=== PATIENT | male | born 1950 | race Hispanic/Latino ===

== ENCOUNTER 2018-12-03 16:46 | Inpatient (IN) | payer MEDICARE ==
--- NOTE | 2018-12-03 16:51 | Emergency Department Report ---
Blank Doc - Documentation Documentation: This is a 68-year-old male that presents with penile pump protruding. Stated was there for 2 days. This initial assessment/diagnostic orders/clinical plan/treatment(s) is/are subject to change based on patient's health status, clinical progression and re- assessment by fellow clinical providers in the ED. Further treatment and workup at subsequent clinical providers discretion. Patient/guardians urged not to elope from the ED as their condition may be serious if not clinically assessed and managed. Initial orders include: 1- Patient sent to MAIN ED for further evaluation and treatment 2- Charge nurse notified to have the patient be brought back [facility]
--- NOTE | 2018-12-03 17:12 | Emergency Department Report ---
ED Male HPI - General Chief complaint: Urogenital-Male Stated complaint: PENIS ISSUES Time Seen by Provider: 12/03/18 16:48 Source: patient Mode of arrival: Ambulatory Limitations: No Limitations - History of Present Illness Initial comments: This is a 68-year-old male that presents with penile pump protruding through his penis. Stated it was noticed this morning by his brother that was caring for him. He had the penile pump placed 2 years ago. He also has a history of prostate issues status post biopsy 2 years ago also. He complaining of severe pain, discharge, redness from the area. -: Gradual, days(s) (1) Location: penis Radiation: none Severity: severe Severity scale (0 -10): 10 - Related Data Home Medications Medication Instructions Recorded Confirmed Last Taken Diazepam 1 tab PO BID 02/26/16 05/14/16 Unknown Fesoterodine Fumarate [Toviaz] 4 mg PO QDAY 02/26/16 05/14/16 Unknown Diazepam [Valium] 10 mg PO BID 05/14/16 05/14/16 Unknown Valsartan/Hydrochlorothiazide 1 each PO DAILY 05/14/16 05/14/16 Unknown [Valsartan-Hctz 320-25 mg Tab] amLODIPine [Norvasc] 10 mg PO DAILY 05/14/16 05/14/16 Unknown Allergies Allergy/AdvReac Type Severity Reaction Status Date / Time No Known Allergies Allergy Verified 02/28/16 14:38 ED Review of Systems ROS: Stated complaint: PENIS ISSUES Other details as noted in HPI Comment: All other systems reviewed and negative Constitutional: denies: chills Eyes: denies: eye pain ENT: denies: ear pain Respiratory: denies: cough Cardiovascular: denies: chest pain Genitourinary: urgency, other (penile pain) Neurological: denies: headache Psychiatric: denies: anxiety ED Past Medical Hx - Past Medical History Hx Hypertension: Yes Hx CVA: Yes Hx GERD: No Hx Psychiatric Treatment: Yes (panic attacks, mentally challenged) Hx HIV: No Additional medical history: elevated psa, - Social History Smoking Status: Former Smoker Substance Use Type: None - Medications Home Medications: Home Medications Medication Instructions Recorded Confirmed Last Taken Type Diazepam 1 tab PO BID 02/26/16 05/14/16 Unknown History Fesoterodine Fumarate [Toviaz] 4 mg PO QDAY 02/26/16 05/14/16 Unknown History Diazepam [Valium] 10 mg PO BID 05/14/16 05/14/16 Unknown History Valsartan/Hydrochlorothiazide 1 each PO DAILY 05/14/16 05/14/16 Unknown History [Valsartan-Hctz 320-25 mg Tab] amLODIPine [Norvasc] 10 mg PO DAILY 05/14/16 05/14/16 Unknown History ED Physical Exam - General Limitations: No Limitations General appearance: alert, in no apparent distress - Head Head exam: Present: atraumatic, normocephalic - Eye Eye exam: Present: normal appearance, PERRL, EOMI - ENT ENT exam: Present: normal exam, normal orophraynx - Neck Neck exam: Present: normal inspection - Respiratory Respiratory exam: Present: normal lung sounds bilaterally - Cardiovascular Cardiovascular Exam: Present: regular rate, normal rhythm - GI/Abdominal GI/Abdominal exam: Present: soft, normal bowel sounds - exam: Present: other (pump eroded through penis, about 1 inch of pump out of penis) ED Course Vital Signs 12/03/18 12/03/18 16:49 18:47 Temperature 97.5 F L Pulse Rate 99 H Respiratory 17 20 Rate Blood Pressure 159/84 [Left] O2 Sat by Pulse 97 97 Oximetry - Reevaluation(s) Reevaluation #1: 12/03/18 18:55 Morphine 2 mg IV, which helped pain, wound culture, Zosyn started, discussed with urologist, Dr. hoffman, recommended admission by hospitalist, who will see in a.m. ED Medical Decision Making - Lab Data Result diagrams: 12/03/18 17:16 12/03/18 16:58 - Medical Decision Making Morphine 2 mg IV, which helped pain, wound culture, Zosyn started, discussed with urologist, Dr. hoffman, recommended admission by hospitalist, who will see in a.m. Critical care attestation.: If time is entered above; I have spent that time in minutes in the direct care of this critically ill patient, excluding procedure time. ED Disposition Clinical Impression: Open wound of penis with complication Qualifiers: Encounter type: initial encounter Qualified Code(s): S31.20XA - Unspecified open wound of penis, initial encounter Disposition: OP ADMIT IP TO THIS HOSP Is pt being admited?: Yes Does the pt Need Aspirin: No Condition: Stable Referrals: KRIS VENEGAS MD [Primary Care Provider] - 3-5 Days
[2018-12-03] MEDS ORDERED: MORPHINE IV ONE (17:24)
[2018-12-03] MEDS ORDERED: ZOFRAN IV ONE (17:24)
[2018-12-03 17:32] LABS: Basophils # (Auto) 0.1 K/mm3 (0.0-0.1); Basophils % (Auto) 0.4 % (0.0-1.8); Eosinophils # (Auto) 0.3 K/mm3 (0.0-0.4); Hematocrit 42.7 % (35.5-45.6); Lymphocytes # (Auto) 3.6 K/mm3 (1.2-5.4); Lymphocytes % (Auto) 24.5 % (13.4-35.0); Mean Corpuscular HGB Conc 33 % (32-34); Mean Corpuscular Volume 86 fl (84-94); Monocytes # (Auto) 1.1 K/mm3 (0.0-0.8); Monocytes % (Auto) 7.2 % (0.0-7.3); Platelet Count 384 K/mm3 (140-440); Red Blood Count 4.94 M/mm3 (3.65-5.03); Red Cell Distribution Width 15.3 % (13.2-15.2)
[2018-12-03 17:35] LABS: Alanine Aminotransferase 14 units/L (7-56); Albumin 3.7 g/dL (3.9-5); BUN/Creatinine Ratio 22; Blood Urea Nitrogen 26 mg/dL (9-20); Calcium 9.1 mg/dL (8.4-10.2); Hemolysis Index 9
[2018-12-03] MEDS ORDERED: ZOSYN/NS 3.375GM/50ML 3.375 GM/50 ML BAG IV ONE (17:45)
[2018-12-03] MEDS ORDERED: ZOFRAN IV PRN (20:13)
[2018-12-03] MEDS ORDERED: TYLENOL PO PRN (20:13)
[2018-12-03] MEDS ORDERED: SODIUM CHLORIDE FLUSH SYRINGE 10 ML IV PRN (20:13)
[2018-12-03] MEDS ORDERED: DILAUDID IV PRN (20:13)
--- NOTE | 2018-12-03 20:53 | History and Physical Report ---
History of Present Illness Date of examination: 12/03/18 Date of admission: 12/03/18 19:31 Chief complaint: Penile pain History of present illness: 68-year-old male with history of hypertension, CVA, panic attacks, mentally challenged who presents to [facility] ED with complaints of penile pain and erosion of penile pump through penis. He states that he had a penile pump placed approximately 2 years ago. Of note patient is mentally challenged and his brother is his legal caregiver. Patient states that his brother noticed the erosion of penile pump through his penis this morning when providing care for him. Patient states that his pain is 8/10 and isolated to the penile area. He also complains of drainage with foul odor coming from his penis. Denies: n/v/d, fever, radius penile pump complications Past History Past Medical History: hypertension, stroke, other (panic attacks, mentally challenged, elevated PSA) Past Surgical History: Other (penile implant surgery) Social history: lives with family, smoking (former smoker) Family history: no significant family history Medications and Allergies Allergies Allergy/AdvReac Type Severity Reaction Status Date / Time No Known Allergies Allergy Verified 02/28/16 14:38 Home Medications Medication Instructions Recorded Confirmed Last Taken Type Diazepam 1 tab PO BID 02/26/16 05/14/16 Unknown History Fesoterodine Fumarate [Toviaz] 4 mg PO QDAY 02/26/16 05/14/16 Unknown History Diazepam [Valium] 10 mg PO BID 05/14/16 05/14/16 Unknown History Valsartan/Hydrochlorothiazide 1 each PO DAILY 05/14/16 05/14/16 Unknown History [Valsartan-Hctz 320-25 mg Tab] amLODIPine [Norvasc] 10 mg PO DAILY 05/14/16 05/14/16 Unknown History Active Meds: Active Medications Acetaminophen (Tylenol) 650 mg PO Q4H PRN PRN Reason: Pain MILD(1-3)/Fever >100.5/[place] Amlodipine Besylate (Norvasc) 10 mg PO DAILY [facility] Aspirin (Baby Aspirin) 81 mg PO QDAY [facility] Atorvastatin Calcium (Lipitor) 40 mg PO QHS [facility] Enoxaparin Sodium (Lovenox) 40 mg SUB-Q QDAY [facility] Hydralazine HCl (Apresoline) 10 mg IV Q4HR PRN PRN Reason: Blood Pressure Hydromorphone HCl (Dilaudid) 0.5 mg IV Q3H PRN PRN Reason: Pain , Severe (7-10) Stop: 12/04/18 23:59 Ampicillin Sodium/Sulbactam Sodium (Unasyn/Ns 1.5 Gm/50 Ml) 1.5 gm in 50 mls @ 100 mls/hr IV Q6HR KARINA; Protocol Sodium Chloride (Nacl 0.9% 1000 Ml) 1,000 mls @ 100 mls/hr IV DIRECT KARINA Miscellaneous Medication (Fesoterodine Fumarate [Toviaz]) 4 mg PO QDAY [facility] Morphine Sulfate (Morphine) 2 mg IV Q4H PRN PRN Reason: Pain, Moderate (4-6) Ondansetron HCl (Zofran) 4 mg IV Q8H PRN PRN Reason: Nausea And Vomiting Oxycodone/Acetaminophen (Percocet 5/325) 1 tab PO Q6H PRN PRN Reason: Pain, Moderate (4-6) Sodium Chloride (Sodium Chloride Flush Syringe 10 Ml) 10 ml IV BID KARINA Sodium Chloride (Sodium Chloride Flush Syringe 10 Ml) 10 ml IV PRN PRN PRN Reason: LINE FLUSH Review of Systems All systems: negative (reviewed and no additional remarkable complaints except as noted below) Genitourinary Male: urinary frequency, genital pain (penile pain related to c omplications from penile implant) Exam - Physical Exam Narrative exam: Physical exam General appearance: Present: No acute distress, alert and oriented 3, older adult male - EENT Eyes: Present: PERRL, EOM intact ENT: hearing intact, poor dentition - Neck Neck: Present: supple, normal ROM - Respiratory Respiratory effort: Non-labored Respiratory: Clear throughout - Cardiovascular Heart rate: 72 (bpm) Rhythm: Sinus rhythm Heart Sounds: Present: S1 & S2. Absent: rub, click - Extremities Extremities: no ischemia, pulses intact, - Peripheral Assessment Peripheral Pulses: within normal limits - Abdominal General gastrointestinal: soft, non-tender, normal bowel sounds - Integumentary Integumentary: Present: warm, dry - Musculoskeletal Musculoskeletal: Normal gait, able to move all extremities - : pump eroded through penis, about 1 inch of pump out of penis - Psychiatric Psychiatric: cooperative - Constitutional Vitals: Temp Pulse Resp BP Pulse Ox 98.2 F 72 18 146/63 96 12/03/18 20:04 12/03/18 20:04 12/03/18 20:04 12/03/18 20:04 12/03/18 20:04 Results - Labs CBC & Chem 7: 12/03/18 17:16 12/03/18 16:58 Labs: Laboratory Last Values WBC 14.7 K/mm3 (4.5-11.0) H 12/03/18 17:16 RBC 4.94 M/mm3 (3.65-5.03) 12/03/18 17:16 Hgb 14.0 gm/dl (11.8-15.2) 12/03/18 17:16 Hct 42.7 % (35.5-45.6) 12/03/18 17:16 MCV 86 fl (84-94) 12/03/18 17:16 MCH 28 pg (28-32) 12/03/18 17:16 MCHC 33 % (32-34) 12/03/18 17:16 RDW 15.3 % (13.2-15.2) H 12/03/18 17:16 Plt Count 384 K/mm3 (140-440) 12/03/18 17:16 Lymph % (Auto) 24.5 % (13.4-35.0) 12/03/18 17:16 [place] % (Auto) 7.2 % (0.0-7.3) 12/03/18 17:16 Eos % (Auto) 2.0 % (0.0-4.3) 12/03/18 17:16 Baso % (Auto) 0.4 % (0.0-1.8) 12/03/18 17:16 Lymph # 3.6 K/mm3 (1.2-5.4) 12/03/18 17:16 [place] # 1.1 K/mm3 (0.0-0.8) H 12/03/18 17:16 Eos # 0.3 K/mm3 (0.0-0.4) 12/03/18 17:16 Baso # 0.1 K/mm3 (0.0-0.1) 12/03/18 17:16 Seg Neutrophils % 65.9 % (40.0-70.0) 12/03/18 17:16 Seg Neutrophils # 9.7 K/mm3 (1.8-7.7) H 12/03/18 17:16 Sodium 139 mmol/L (137-145) 12/03/18 16:58 Potassium 4.7 mmol/L (3.6-5.0) 12/03/18 16:58 Chloride 100.8 mmol/L (98-107) 12/03/18 16:58 Carbon Dioxide 24 mmol/L (22-30) 12/03/18 16:58 19 mmol/L 12/03/18 16:58 BUN 26 mg/dL (9-20) H 12/03/18 16:58 1.2 mg/dL (0.8-1.5) 12/03/18 16:58 Estimated GFR > 60 ml/min 12/03/18 16:58 22 % 12/03/18 16:58 Glucose 99 mg/dL (75-100) 12/03/18 16:58 Lactic Acid 1.30 mmol/L (0.7-2.0) 12/03/18 17:20 Calcium 9.1 mg/dL (8.4-10.2) 12/03/18 16:58 0.20 mg/dL (0.1-1.2) 12/03/18 16:58 AST 21 units/L (5-40) 12/03/18 16:58 ALT 14 units/L (7-56) 12/03/18 16:58 82 units/L (35-129) 12/03/18 16:58 8.2 g/dL (6.3-8.2) 12/03/18 16:58 3.7 g/dL (3.9-5) L 12/03/18 16:58 0.8 % 12/03/18 16:58 Assessment and Plan Assessment and plan: 68-year-old male with history of hypertension, CVA, panic attacks, mentally challenged who presents to [facility] ED with complaints of penile pain and erosion of penile pump through penis. On assessment penile pump is noted to be eroded approximately 1 inch outside of penis. There is some crusting over genital area with foul odor noted. Has elevated white count at 14.7 with a heart rate of 99 bpm, and is currently afebrile. Will admit to [facility] and consult urology. Sepsis likely due to erosion of penile pump Erosion of penile pump RASHID HTN Hx CVA Hx of panic attacks Mentally challenged Plan: Continue Supportive care Pain management Start Unasyn Nothing by mouth at midnight Urology consulted with plans for surgical intervention in a.m. IVF NS @ 100ml/hr Monitor renal function Monitor CBC Monitor BP IV hydralazine when necessary Norvasc 10 mg daily ASA 81 mg daily, Lipitor 40 mg daily at bedtime DVT PPX on Lovenox Advance Directives: No VTE prophylaxis?: Chemical Plan of care discussed with patient/family: Yes
[2018-12-03] MEDS: SODIUM CHLORIDE FLUSH SYRINGE 10 ML IV SCH (22:01)
[2018-12-03] MEDS: NACL 0.9% 1000 ML 1,000 ML IV SCH (22:02)
[2018-12-04] MEDS: MORPHINE IV PRN (00:16)
[2018-12-04] MEDS: UNASYN/NS 1.5 GM/50 ML 1.5 GM/50 ML BAG IV SCH ×4 (00:16→18:02)
[2018-12-04] MEDS: SODIUM CHLORIDE FLUSH SYRINGE 10 ML IV SCH ×2 (00:17→21:44)
[2018-12-04 06:38] LABS: Basophils % (Auto) 0.1 % (0.0-1.8); Eosinophils # (Auto) 0.4 K/mm3 (0.0-0.4); Hematocrit 36.6 % (35.5-45.6); Hemoglobin 12.2 gm/dl (11.8-15.2); Lymphocytes # (Auto) 2.9 K/mm3 (1.2-5.4); Lymphocytes % (Auto) 24.2 % (13.4-35.0); Mean Corpuscular HGB Conc 33 % (32-34); Mean Corpuscular Volume 87 fl (84-94); Monocytes # (Auto) 1.1 K/mm3 (0.0-0.8); Platelet Count 298 K/mm3 (140-440); Red Blood Count 4.23 M/mm3 (3.65-5.03); Red Cell Distribution Width 14.9 % (13.2-15.2)
[2018-12-04 06:56] LABS: BUN/Creatinine Ratio 22; Blood Urea Nitrogen 24 mg/dL (9-20); Calcium 8.2 mg/dL (8.4-10.2); Hemolysis Index 0
[2018-12-04] MEDS: NORVASC PO SCH (09:24)
[2018-12-04] MEDS ORDERED: FESOTERODINE FUMARATE 4 MG PO SCH (10:00)
[2018-12-04] MEDS ORDERED: LOVENOX SUB-Q SCH (10:00)
[2018-12-04] MEDS ORDERED: BABY ASPIRIN PO SCH (10:00)
--- NOTE | 2018-12-04 13:46 | Progress Note ---
Assessment and Plan Assessment and plan: 68-year-old male with history of hypertension, CVA, panic attacks, mentally challenged who presents to [facility] ED with complaints of penile pain and erosion of penile pump through penis. On assessment penile pump is noted to be eroded approximately 1 inch outside of penis. There is some crusting over genital area with foul odor noted. Has elevated white count at 14.7 with a heart rate of 99 bpm, and is currently afebrile. Urology consulted in the ED Sepsis likely due to erosion of penile pump Erosion of penile pump RASHID HTN Hx CVA Hx of panic attacks Mentally challenged Plan: Continue Supportive care Pain management Patient is on IV Unasyn Nothing by mouth at midnight Urology consulted with plans for surgical intervention today IVF NS @ 100ml/hr IV hydralazine when necessary Norvasc 10 mg daily ASA 81 mg daily, Lipitor 40 mg daily at bedtime DVT PPX on Lovenox History Interval history: Patient was seen and evaluated this morning, patient's complaining pain in his penis. Hospitalist Physical - Physical exam Narrative exam: Not in cardiopulmonary distress. The patient appeared well nourished and normally developed. Vital signs as documented. Head exam is unremarkable. No scleral icterus . Neck is without jugular venous distension, thyromegaly, or carotid bruits. Lungs are clear to auscultation. Cardiac exam reveals regular rate and Rhythm. First and second heart sounds normal. No murmurs, rubs or gallops. Abdominal exam reveals normal bowel sounds, no masses, no organomegaly and no aortic enlargement. Extremities are nonedematous and both femoral and pedal pulses are normal. ; has eroded penile head. The implants are visible and offensive discharge. SALES LEADER: Alert . - Constitutional Vitals: Temp Pulse Resp BP Pulse Ox 98.6 F 85 20 140/86 93 12/04/18 07:44 12/04/18 07:44 12/04/18 09:14 12/04/18 07:44 12/04/18 07:44 Results - Labs CBC & Chem 7: 12/04/18 04:44 12/04/18 04:44 Labs: Laboratory Last Values WBC 12.1 K/mm3 (4.5-11.0) H 12/04/18 04:44 RBC 4.23 M/mm3 (3.65-5.03) 12/04/18 04:44 Hgb 12.2 gm/dl (11.8-15.2) 12/04/18 04:44 Hct 36.6 % (35.5-45.6) D 12/04/18 04:44 MCV 87 fl (84-94) 12/04/18 04:44 MCH 29 pg (28-32) 12/04/18 04:44 MCHC 33 % (32-34) 12/04/18 04:44 RDW 14.9 % (13.2-15.2) 12/04/18 04:44 Plt Count 298 K/mm3 (140-440) 12/04/18 04:44 Lymph % (Auto) 24.2 % (13.4-35.0) 12/04/18 04:44 [place] % (Auto) 9.0 % (0.0-7.3) H 12/04/18 04:44 Eos % (Auto) 3.0 % (0.0-4.3) 12/04/18 04:44 Baso % (Auto) 0.1 % (0.0-1.8) 12/04/18 04:44 Lymph # 2.9 K/mm3 (1.2-5.4) 12/04/18 04:44 [place] # 1.1 K/mm3 (0.0-0.8) H 12/04/18 04:44 Eos # 0.4 K/mm3 (0.0-0.4) 12/04/18 04:44 Baso # 0.0 K/mm3 (0.0-0.1) 12/04/18 04:44 Seg Neutrophils % 63.7 % (40.0-70.0) 12/04/18 04:44 Seg Neutrophils # 7.7 K/mm3 (1.8-7.7) 12/04/18 04:44 Sodium 139 mmol/L (137-145) 12/04/18 04:44 Potassium 3.9 mmol/L (3.6-5.0) 12/04/18 04:44 Chloride 102.5 mmol/L (98-107) 12/04/18 04:44 Carbon Dioxide 25 mmol/L (22-30) 12/04/18 04:44 15 mmol/L 12/04/18 04:44 BUN 24 mg/dL (9-20) H 12/04/18 04:44 1.1 mg/dL (0.8-1.5) 12/04/18 04:44 Estimated GFR > 60 ml/min 12/04/18 04:44 22 % 12/04/18 04:44 Glucose 84 mg/dL (75-100) 12/04/18 04:44 Lactic Acid 1.30 mmol/L (0.7-2.0) 12/03/18 17:20 Calcium 8.2 mg/dL (8.4-10.2) L 12/04/18 04:44 0.20 mg/dL (0.1-1.2) 12/03/18 16:58 AST 21 units/L (5-40) 12/03/18 16:58 ALT 14 units/L (7-56) 12/03/18 16:58 82 units/L (35-129) 12/03/18 16:58 8.2 g/dL (6.3-8.2) 12/03/18 16:58 3.7 g/dL (3.9-5) L 12/03/18 16:58 0.8 % 12/03/18 16:58 Active Medications - Current Medications Current Medications: Generic Name Dose Route Start Last Admin Trade Name Freq PRN Reason Stop Dose Admin Acetaminophen 650 mg 12/03/18 20:13 Tylenol PO Q4H PRN Pain MILD(1-3)/Fever >100.5/[place] Amlodipine Besylate 10 mg 12/04/18 10:00 Norvasc PO DAILY [facility] Aspirin 81 mg 12/04/18 10:00 Baby Aspirin PO QDAY [facility] Atorvastatin Calcium 40 mg 12/03/18 22:00 12/03/18 22:00 Lipitor PO 40 mg QHS KARINA Administration Enoxaparin Sodium 40 mg 12/04/18 10:00 Lovenox SUB-Q QDAY [facility] Hydralazine HCl 10 mg 12/03/18 20:17 Apresoline IV Q4HR PRN Blood Pressure Hydromorphone HCl 0.5 mg 12/03/18 20:13 Dilaudid IV 12/04/18 23:59 Q3H PRN Pain , Severe (7-10) Ampicillin Sodium/Sulbactam Sodium 1.5 gm in 50 mls @ 100 mls/hr 12/04/18 00:00 12/04/18 06:25 Unasyn/Ns 1.5 Gm/50 Ml IV 100 mls/hr Q6HR KARINA Administration Protocol Sodium Chloride 1,000 mls @ 100 mls/hr 12/03/18 21:00 12/03/18 22:02 Nacl 0.9% 1000 Ml IV 100 mls/hr DIRECT KARINA Administration Miscellaneous Medication 4 mg 12/04/18 10:00 Fesoterodine Fumarate [Toviaz] PO QDAY KARINA Morphine Sulfate 2 mg 12/03/18 20:13 12/04/18 00:16 Morphine IV 2 mg Q4H PRN Administration Pain, Moderate (4-6) Ondansetron HCl 4 mg 12/03/18 20:13 Zofran IV Q8H PRN Nausea And Vomiting Oxycodone/Acetaminophen 1 tab 12/03/18 20:13 Percocet 5/325 PO Q6H PRN Pain, Moderate (4-6) Sodium Chloride 10 ml 12/03/18 22:00 12/04/18 00:17 Sodium Chloride Flush Syringe 10 Ml IV 10 ml BID KARINA Administration Sodium Chloride 10 ml 12/03/18 20:13 Sodium Chloride Flush Syringe 10 Ml IV PRN PRN LINE FLUSH
--- NOTE | 2018-12-04 14:32 | Consultation ---
History of Present Illness - Reason for Consult Consult date: 12/04/18 Past History Past Medical History: hypertension, stroke, other (panic attacks, mentally challenged, elevated PSA) Past Surgical History: Other (penile implant surgery) Social history: lives with family, smoking (former smoker) Family history: no significant family history Medications and Allergies Allergies Allergy/AdvReac Type Severity Reaction Status Date / Time No Known Allergies Allergy Verified 02/28/16 14:38 Home Medications Medication Instructions Recorded Confirmed Last Taken Type No Known Home Medications [No 12/04/18 12/04/18 Unknown History Reported Home Medications] Active Meds: Active Medications Acetaminophen (Tylenol) 650 mg PO Q4H PRN PRN Reason: Pain MILD(1-3)/Fever >100.5/[place] Amlodipine Besylate (Norvasc) 10 mg PO DAILY [facility] Aspirin (Baby Aspirin) 81 mg PO QDAY [facility] Atorvastatin Calcium (Lipitor) 40 mg PO QHS [facility] Last Admin: 12/03/18 22:00 Dose: 40 mg Documented by: Enoxaparin Sodium (Lovenox) 40 mg SUB-Q QDAY [facility] Hydralazine HCl (Apresoline) 10 mg IV Q4HR PRN PRN Reason: Blood Pressure Hydromorphone HCl (Dilaudid) 0.5 mg IV Q3H PRN PRN Reason: Pain , Severe (7-10) Stop: 12/04/18 23:59 Ampicillin Sodium/Sulbactam Sodium (Unasyn/Ns 1.5 Gm/50 Ml) 1.5 gm in 50 mls @ 100 mls/hr IV Q6HR [facility]; Protocol Last Admin: 12/04/18 12:25 Dose: 100 mls/hr Documented by: Sodium Chloride (Nacl 0.9% 1000 Ml) 1,000 mls @ 100 mls/hr IV DIRECT KARINA Last Admin: 12/03/18 22:02 Dose: 100 mls/hr Documented by: Miscellaneous Medication (Fesoterodine Fumarate [Toviaz]) 4 mg PO QDAY [facility] Morphine Sulfate (Morphine) 2 mg IV Q4H PRN PRN Reason: Pain, Moderate (4-6) Last Admin: 12/04/18 00:16 Dose: 2 mg Documented by: Ondansetron HCl (Zofran) 4 mg IV Q8H PRN PRN Reason: Nausea And Vomiting Oxycodone/Acetaminophen (Percocet 5/325) 1 tab PO Q6H PRN PRN Reason: Pain, Moderate (4-6) Sodium Chloride (Sodium Chloride Flush Syringe 10 Ml) 10 ml IV BID [facility]ARINA Last Admin: 12/04/18 00:17 Dose: 10 ml Documented by: Sodium Chloride (Sodium Chloride Flush Syringe 10 Ml) 10 ml IV PRN PRN PRN Reason: LINE FLUSH Exam - Constitutional Vitals: Temp Pulse Resp BP Pulse Ox 98.7 F 74 18 164/65 96 12/04/18 13:11 12/04/18 13:11 12/04/18 13:11 12/04/18 13:11 12/04/18 13:11 Results - Labs CBC & Chem 7: 12/04/18 04:44 12/04/18 04:44 Labs: Abnormal lab results 12/03/18 12/03/18 12/04/18 Range/Units 16:58 17:16 04:44 WBC 14.7 H 12.1 H (4.5-11.0) K/mm3 RDW 15.3 H (13.2-15.2) % [place] % (Auto) 9.0 H (0.0-7.3) % [place] # 1.1 H 1.1 H (0.0-0.8) K/mm3 Seg Neutrophils # 9.7 H (1.8-7.7) K/mm3 BUN 26 H (9-20) mg/dL Calcium (8.4-10.2) mg/dL Albumin 3.7 L (3.9-5) g/dL 12/04/18 Range/Units 04:44 WBC (4.5-11.0) K/mm3 RDW (13.2-15.2) % [place] % (Auto) (0.0-7.3) % [place] # (0.0-0.8) K/mm3 Seg Neutrophils # (1.8-7.7) K/mm3 BUN 24 H (9-20) mg/dL Calcium 8.2 L (8.4-10.2) mg/dL Albumin (3.9-5) g/dL Assessment and Plan PENILE PROSTHESIS EROSION - suspec chronic, pt voiding - disc w/ pt had brother and sisterinlwas - Will need removal and will plan during this inpatient stay
[2018-12-04] MEDS: NACL 0.9% 1000 ML 1,000 ML IV SCH (18:01)
[2018-12-04] MEDS: PERCOCET 5/325 PO PRN (21:37)
[2018-12-04] MEDS ORDERED: ZOFRAN IV PRN (22:39)
[2018-12-04] MEDS ORDERED: SUBLIMAZE IV PRN (22:39)
--- NOTE | 2018-12-05 00:11 | Progress Note ---
Assessment and Plan PENILE PROSTHESIS EROSION - suspec chronic, pt voiding - disc w/ pt had brother and sisterariana - Will need removal and will plan during this inpatient stay - 2nd visity disc plan for am surgery Subjective Date of service: 12/04/18 Interval history: no comple Objective - Constitutional Vitals: Vital Signs - 12hr 12/04/18 12/04/18 13:11 20:00 Temperature 98.7 F 98.1 F Pulse Rate 74 85 Respiratory 18 20 Rate Blood Pressure 164/65 Blood Pressure 162/68 [Left] O2 Sat by Pulse 96 98 Oximetry - Labs CBC & Chem 7: 12/04/18 04:44 12/04/18 04:44 Labs: Abnormal lab results 12/04/18 12/04/18 Range/Units 04:44 04:44 WBC 12.1 H (4.5-11.0) K/mm3 [place] % (Auto) 9.0 H (0.0-7.3) % [place] # 1.1 H (0.0-0.8) K/mm3 BUN 24 H (9-20) mg/dL Calcium 8.2 L (8.4-10.2) mg/dL Medications & Allergies - Medications Allergies/Adverse Reactions: Allergies No Known Allergies Allergy (Verified 02/28/16 14:38) Home Medications: Home Medications Medication Instructions Recorded Confirmed Last Taken Type No Known Home Medications [No 12/04/18 12/04/18 Unknown History Reported Home Medications] Active Medications: Generic Name Dose Route Start Last Admin Trade Name Freq PRN Reason Stop Dose Admin Acetaminophen 650 mg 12/03/18 20:13 Tylenol PO Q4H PRN Pain MILD(1-3)/Fever >100.5/[place] Amlodipine Besylate 10 mg 12/04/18 10:00 12/04/18 09:24 Norvasc PO Not Given DAILY [facility] Atorvastatin Calcium 40 mg 12/03/18 22:00 12/04/18 20:59 Lipitor PO 40 mg QHS KARINA Administration Fentanyl 50 mcg 12/04/18 22:39 Sublimaze IV 12/05/18 01:59 Q5MIN PRN Pain , Severe (7-10) Hydralazine HCl 10 mg 12/03/18 20:17 Apresoline IV Q4HR PRN Blood Pressure Ampicillin Sodium/Sulbactam Sodium 1.5 gm in 50 mls @ 100 mls/hr 12/04/18 00:00 12/04/18 18:02 Unasyn/Ns 1.5 Gm/50 Ml IV 100 mls/hr Q6HR [facility]INA Administration Protocol Sodium Chloride 1,000 mls @ 100 mls/hr 12/03/18 21:00 12/04/18 18:01 Nacl 0.9% 1000 Ml IV 100 mls/hr DIRECT [facility]ARINA Administration Miscellaneous Medication 4 mg 12/04/18 10:00 Fesoterodine Fumarate [Toviaz] PO QDAY [facility] Morphine Sulfate 2 mg 12/03/18 20:13 12/04/18 00:16 Morphine IV 2 mg Q4H PRN Administration Pain, Moderate (4-6) Ondansetron HCl 4 mg 12/03/18 20:13 Zofran IV Q8H PRN Nausea And Vomiting Oxycodone/Acetaminophen 1 tab 12/03/18 20:13 12/04/18 21:37 Percocet 5/325 PO 1 tab Q6H PRN Administration Pain, Moderate (4-6) Sodium Chloride 10 ml 12/03/18 22:00 12/04/18 21:44 Sodium Chloride Flush Syringe 10 Ml IV 10 ml BID KARINA Administration Sodium Chloride 10 ml 12/03/18 20:13 Sodium Chloride Flush Syringe 10 Ml IV PRN PRN LINE FLUSH
[2018-12-05] MEDS: UNASYN/NS 1.5 GM/50 ML 1.5 GM/50 ML BAG IV SCH ×4 (00:19→22:40)
[2018-12-05] MEDS: APRESOLINE IV PRN ×2 (03:54→11:09)
[2018-12-05] MEDS: NACL 0.9% 1000 ML 1,000 ML IV SCH ×2 (05:34→14:39)
[2018-12-05 06:26] LABS: Basophils % (Auto) 0.3 % (0.0-1.8); Eosinophils # (Auto) 0.4 K/mm3 (0.0-0.4); Eosinophils % (Auto) 2.8 % (0.0-4.3); Hematocrit 38.6 % (35.5-45.6); Hemoglobin 12.8 gm/dl (11.8-15.2); Lymphocytes # (Auto) 3.7 K/mm3 (1.2-5.4); Lymphocytes % (Auto) 29.9 % (13.4-35.0); Mean Corpuscular HGB Conc 33 % (32-34); Mean Corpuscular Volume 86 fl (84-94); Monocytes # (Auto) 1.1 K/mm3 (0.0-0.8); Monocytes % (Auto) 9.1 % (0.0-7.3); Platelet Count 328 K/mm3 (140-440); Red Blood Count 4.51 M/mm3 (3.65-5.03); Red Cell Distribution Width 14.7 % (13.2-15.2)
[2018-12-05 06:42] LABS: BUN/Creatinine Ratio 18; Blood Urea Nitrogen 18 mg/dL (9-20); Calcium 8.8 mg/dL (8.4-10.2); Hemolysis Index 2
--- NOTE | 2018-12-05 07:54 | Anesthesia Day of Surgery ---
Anesthesia Day of Surgery - Day of Surgery Patient Examined: Yes Patient H&P Reviewed: Yes Patient is NPO: Yes
--- NOTE | 2018-12-05 07:56 | Anesthesia Consultation ---
Anesthesia Consult and Med Hx Date of service: 12/05/18 - Airway Anesthetic Teeth Evaluation: Edentulous ROM Head & Neck: Adequate Mental/Hyoid Distance: Adequate Mallampati Class: Class II Intubation Access Assessment: Probably Good - Pre-Operative Health Status ASA Pre-Surgery Classification: ASA3, Emergency Proposed Anesthetic Plan: General - Pulmonary Hx Smoking: Yes SOB: No Hx Sleep Apnea: No - Cardiovascular System Hx Hypertension: Yes - Central Nervous System CVA: Yes Hx Psychiatric Problems: Yes (Panic Attacks) - Other Systems Hx Alcohol Use: No Hx Substance Use: No Hx Cancer: No - Additional Comments Anesthesia Medical History Comments: Pt mentally challenged and phone consent obtained from his brother and landscaper helper, Lopez
[2018-12-05] MEDS ORDERED: SUBLIMAZE IV PRN (07:57)
[2018-12-05] MEDS ORDERED: ZOFRAN IV PRN (07:57)
[2018-12-05] MEDS ORDERED: XYLOCAINE MPF 2% ONE (07:59)
[2018-12-05] MEDS ORDERED: ZOFRAN ONE (07:59)
[2018-12-05] MEDS ORDERED: DIPRIVAN 10 MG/ML IV ONE (08:00)
[2018-12-05] MEDS ORDERED: SUBLIMAZE ONE ×2 (08:00→09:12)
--- NOTE | 2018-12-05 08:01 | Post Operative Note ---
Date of procedure: 12/05/18 Pre-op diagnosis: eroded penile implat Post-op diagnosis: same Findings: as above Procedure: removal IPP Anesthesia: GETA Surgeon: AVELINA TEIXEIRA Estimated blood loss: 50-100ml Pathology: list (implant) Specimen disposition: to lab Condition: stable Disposition: PACU
[2018-12-05] MEDS ORDERED: DILAUDID ONE ×2 (08:26→08:52)
[2018-12-05] MEDS ORDERED: LASIX ONE (09:12)
--- NOTE | 2018-12-05 10:07 | Post Operative Note ---
Date of procedure: 12/05/18 Pre-op diagnosis: eroded ipp and urethra Post-op diagnosis: same Findings: severe erosion and necrosis Procedure: removal ipp drainage scrotum spt Anesthesia: GETA Surgeon: AVELINA TEIXEIRA Estimated blood loss: 50-100ml Pathology: list (ipp tissue) Specimen disposition: to lab Condition: stable Disposition: PACU
[2018-12-05] MEDS: SODIUM CHLORIDE FLUSH SYRINGE 10 ML IV SCH ×2 (10:23→22:44)
[2018-12-05] MEDS: HCTZ PO SCH (10:23)
[2018-12-05] MEDS: NORVASC PO SCH (10:24)
--- NOTE | 2018-12-05 10:46 | Operative Report ---
PREOPERATIVE DIAGNOSES: Penile implant erosion, urethral erosion, glandular necrosis. POSTOPERATIVE DIAGNOSES: Penile implant erosion, urethral erosion, glandular necrosis. PROCEDURE: Removal of penile implant with reservoir and with rear tip extenders, wound cultures, drainage and attempted flexible cystoscopy with suprapubic tube insertion. SURGEON: John Schaefer MD ANESTHESIA: General. FINDINGS: This is a gentleman with both cylinders out of the urethra, who has some sort of psychological disorder and the urethra was all the way back, could not be seen. There was necrosis around the glans. The glans was split in half. DESCRIPTION OF PROCEDURE: The patient was brought to the operating room and placed on the operating table. Following induction of anesthesia, the patient was prepped and draped in usual sterile fashion. A transverse incision and penoscrotal incision was made, carried down to the tubing. The tubing was tracked and we delivered the pump. This was a 3-piece pump. The tubings were divided. The pump was removed. We followed the cylinders and both cylinders were removed with difficulty. There was severe scarring throughout the scrotum. Once the cylinders were out, we placed the drain, but we had to try to get the reservoir out. We had no idea how this was placed, but we tracked the reservoir through the left inguinal area through the transscrotal incision and we were able to remove the reservoir after emptying out all the fluid. The patient tolerated the procedure well. At this point, the wound was irrigated and we palpated, the urethra could not find it. We did flexible cystoscopy through this wide open glans, could not find the urethra with a wire. At this point, we palpated rear tips on both sides, we removed those. The patient was given Lasix, bladder was full and then midline incision was made. We opened up the rectus fascia, palpated the bladder. Using a spinal needle, the bladder was noted and 24-Malecot was inserted without difficulty. We sutured it and irrigated it freely. The patient tolerated the procedure well. The fascia was approximated with #1 Vicryl and superficial fascia with Vicryl and skin with clips. The patient brought to recovery room. The drain was placed in the scrotum, which was 1/4-inch [place] and the suprapubic tube was draining clear, brought to recovery in stable condition. [facility]# [id number] RUSLAN/STEWART
[2018-12-05] MEDS ORDERED: NORMODYNE IV ONE (10:48)
[2018-12-05] MEDS ORDERED: APRESOLINE ONE (11:10)
[2018-12-05] MEDS ORDERED: NORMODYNE IV PRN (11:21)
[2018-12-05] MEDS ORDERED: NACL 0.9% 1000 ML 1,000 ML ONE (11:34)
--- NOTE | 2018-12-05 11:57 | Progress Note ---
Assessment and Plan Assessment and plan: 68-year-old male with history of hypertension, CVA, panic attacks, mentally challenged who presents to [facility] ED with complaints of penile pain and erosion of penile pump through penis. On assessment penile pump is noted to be eroded approximately 1 inch outside of penis. There is some crusting over genital area with foul odor noted. Has elevated white count at 14.7 with a heart rate of 99 bpm, and is currently afebrile. Urology consulted in the ED Sepsis likely due to erosion of penile pump Erosion of penile pump with necrosis; patient is going to have IPP removal surgery today RASHID; resolved HTN; controlled;on amlodipine, HCTZ and PRN hydralazine Hx CVA; continue supportive care and home medications - Aspirin, lipitor Hx of panic attacks Mentally challenged DVT PPX on Lovenox History Interval history: Patient was seen and evaluated this morning, patient's complaining pain in his penis. Hospitalist Physical - Physical exam Narrative exam: Not in cardiopulmonary distress. The patient appeared well nourished and normally developed. Vital signs as documented. Head exam is unremarkable. No scleral icterus . Neck is without jugular venous distension, thyromegaly, or carotid bruits. Lungs are clear to auscultation. Cardiac exam reveals regular rate and Rhythm. First and second heart sounds normal. No murmurs, rubs or gallops. Abdominal exam reveals normal bowel sounds, no masses, no organomegaly and no aortic enlargement. Extremities are nonedematous and both femoral and pedal pulses are normal. ; has eroded penile head. The implants are visible and offensive discharge. 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 - Constitutional Vitals: Temp Pulse Resp BP Pulse Ox 97.0 F L 56 L 11 L 158/65 100 12/05/18 10:24 12/05/18 11:15 12/05/18 11:15 12/05/18 11:15 12/05/18 11:15 Results - Labs CBC & Chem 7: 12/05/18 05:28 12/05/18 05:28 Labs: Laboratory Last Values WBC 12.4 K/mm3 (4.5-11.0) H 12/05/18 05:28 RBC 4.51 M/mm3 (3.65-5.03) 12/05/18 05:28 Hgb 12.8 gm/dl (11.8-15.2) 12/05/18 05:28 Hct 38.6 % (35.5-45.6) 12/05/18 05:28 MCV 86 fl (84-94) 12/05/18 05:28 MCH 29 pg (28-32) 12/05/18 05:28 MCHC 33 % (32-34) 12/05/18 05:28 RDW 14.7 % (13.2-15.2) 12/05/18 05:28 Plt Count 328 K/mm3 (140-440) 12/05/18 05:28 Lymph % (Auto) 29.9 % (13.4-35.0) 12/05/18 05:28 [place] % (Auto) 9.1 % (0.0-7.3) H 12/05/18 05:28 Eos % (Auto) 2.8 % (0.0-4.3) 12/05/18 05:28 Baso % (Auto) 0.3 % (0.0-1.8) 12/05/18 05:28 Lymph # 3.7 K/mm3 (1.2-5.4) 12/05/18 05:28 [place] # 1.1 K/mm3 (0.0-0.8) H 12/05/18 05:28 Eos # 0.4 K/mm3 (0.0-0.4) 12/05/18 05:28 Baso # 0.0 K/mm3 (0.0-0.1) 12/05/18 05:28 Seg Neutrophils % 57.9 % (40.0-70.0) 12/05/18 05:28 Seg Neutrophils # 7.2 K/mm3 (1.8-7.7) 12/05/18 05:28 Sodium 141 mmol/L (137-145) 12/05/18 05:28 Potassium 3.7 mmol/L (3.6-5.0) 12/05/18 05:28 Chloride 103.9 mmol/L (98-107) 12/05/18 05:28 Carbon Dioxide 24 mmol/L (22-30) 12/05/18 05:28 17 mmol/L 12/05/18 05:28 BUN 18 mg/dL (9-20) 12/05/18 05:28 1.0 mg/dL (0.8-1.5) 12/05/18 05:28 Estimated GFR > 60 ml/min 12/05/18 05:28 18 % 12/05/18 05:28 Glucose 82 mg/dL (75-100) 12/05/18 05:28 Lactic Acid 1.30 mmol/L (0.7-2.0) 12/03/18 17:20 Calcium 8.8 mg/dL (8.4-10.2) 12/05/18 05:28 0.20 mg/dL (0.1-1.2) 12/03/18 16:58 AST 21 units/L (5-40) 12/03/18 16:58 ALT 14 units/L (7-56) 12/03/18 16:58 82 units/L (35-129) 12/03/18 16:58 8.2 g/dL (6.3-8.2) 12/03/18 16:58 3.7 g/dL (3.9-5) L 12/03/18 16:58 0.8 % 12/03/18 16:58 Active Medications - Current Medications Current Medications: Generic Name Dose Route Start Last Admin Trade Name Freq PRN Reason Stop Dose Admin Acetaminophen 650 mg 12/03/18 20:13 Tylenol PO Q4H PRN Pain MILD(1-3)/Fever >100.5/[place] Amlodipine Besylate 10 mg 12/04/18 10:00 12/05/18 10:24 Norvasc PO Not Given DAILY [facility] Atorvastatin Calcium 40 mg 12/03/18 22:00 12/04/18 20:59 Lipitor PO 40 mg QHS [facility] Administration Fentanyl 50 mcg 12/05/18 07:57 Sublimaze IV Q5MIN PRN Pain , Severe (7-10) Hydralazine HCl 10 mg 12/03/18 20:17 12/05/18 11:09 Apresoline IV 10 mg Q4HR PRN Administration Blood Pressure Hydrochlorothiazide 25 mg 12/05/18 10:00 12/05/18 10:23 Hctz PO Not Given QDAY [facility] Ampicillin Sodium/Sulbactam Sodium 1.5 gm in 50 mls @ 100 mls/hr 12/04/18 00:00 12/05/18 05:35 Unasyn/Ns 1.5 Gm/50 Ml IV 100 mls/hr Q6HR KARINA Administration Protocol Sodium Chloride 1,000 mls @ 100 mls/hr 12/03/18 21:00 12/05/18 05:34 Nacl 0.9% 1000 Ml IV 100 mls/hr DIRECT KARINA Administration Labetalol HCl 10 mg 12/05/18 11:21 12/05/18 10:40 Normodyne IV 10 mg Q10MIN PRN Administration Systollic greater than 170 Miscellaneous Medication 4 mg 12/04/18 10:00 Fesoterodine Fumarate [Toviaz] PO QDAY [facility] Morphine Sulfate 2 mg 12/03/18 20:13 12/04/18 00:16 Morphine IV 2 mg Q4H PRN Administration Pain, Moderate (4-6) Ondansetron HCl 4 mg 12/03/18 20:13 Zofran IV Q8H PRN Nausea And Vomiting Ondansetron HCl 4 mg 12/05/18 07:57 Zofran IV ONCE PRN Nausea And Vomiting Oxycodone/Acetaminophen 1 tab 12/03/18 20:13 12/04/18 21:37 Percocet 5/325 PO 1 tab Q6H PRN Administration Pain, Moderate (4-6) Sodium Chloride 10 ml 12/03/18 22:00 12/05/18 10:23 Sodium Chloride Flush Syringe 10 Ml IV Not Given BID KARINA Sodium Chloride 10 ml 12/03/18 20:13 Sodium Chloride Flush Syringe 10 Ml IV PRN PRN LINE FLUSH
[2018-12-05] MEDS: MORPHINE IV PRN ×2 (12:34→22:08)
--- NOTE | 2018-12-05 14:05 | Post Anesthesia Evaluation ---
- Post Anesthesia Evaluation Patient Participated: Yes Airway Patent: Yes Stable Respiratory Function: Yes Nausea/Vomiting: No Temp > 96.8F: Yes Pain Manageable: Yes Adequeate Hydration: Yes Anesthesia Complications: No Block Receding Appropriately: Not Applicable Patient on Ventilator: No
[2018-12-06] MEDS: PERCOCET 5/325 PO PRN ×3 (01:55→19:39)
[2018-12-06] MEDS: MORPHINE IV PRN ×2 (04:54→09:23)
[2018-12-06] MEDS: NACL 0.9% 1000 ML 1,000 ML IV SCH ×2 (05:50→14:45)
[2018-12-06] MEDS: HCTZ PO SCH (09:22)
[2018-12-06] MEDS: SODIUM CHLORIDE FLUSH SYRINGE 10 ML IV SCH ×2 (09:22→21:32)
[2018-12-06] MEDS: NORVASC PO SCH (09:23)
--- NOTE | 2018-12-06 11:51 | Progress Note ---
Subjective Date of service: 12/06/18 Interval history: 68-year-old male with history of hypertension, CVA, panic attacks, mentally challenged who presents to [facility] ED with complaints of penile pain and erosion of penile pump through penis. On assessment penile pump is noted to be eroded approximately 1 inch outside of penis. There is some crusting over genital area with foul odor noted. Has elevated white count at 14.7 with a heart rate of 99 bpm, and is currently afebrile. Urology consulted in the ED S/P REMOVAL & SPT (DR. Ewing 12-05-18) resting well wound clean michelle removed adjusted spt - irrigates well A/P UTI IPP S/P REMOVAL home with spt Objective - Constitutional Vitals: Vital Signs - 12hr 12/06/18 12/06/18 12/06/18 01:38 07:59 08:00 Temperature 99.1 F 97.4 F L Pulse Rate 85 77 79 Respiratory 18 18 Rate Blood Pressure 157/78 176/74 176/74 O2 Sat by Pulse 94 94 96 Oximetry 12/06/18 09:23 Temperature Pulse Rate 77 Respiratory Rate Blood Pressure 176/76 O2 Sat by Pulse Oximetry - Labs CBC & Chem 7: 12/05/18 05:28 12/05/18 05:28 Medications & Allergies - Medications Allergies/Adverse Reactions: Allergies No Known Allergies Allergy (Verified 02/28/16 14:38) Home Medications: Home Medications Medication Instructions Recorded Confirmed Last Taken Type No Known Home Medications [No 12/04/18 12/04/18 Unknown History Reported Home Medications] Active Medications: Generic Name Dose Route Start Last Admin Trade Name Mukulq PRN Reason Stop Dose Admin Acetaminophen 650 mg 12/03/18 20:13 Tylenol PO Q4H PRN Pain MILD(1-3)/Fever >100.5/[place] Amlodipine Besylate 10 mg 12/04/18 10:00 12/06/18 09:23 Norvasc PO 10 mg DAILY KARINA Administration Atorvastatin Calcium 40 mg 12/03/18 22:00 12/05/18 22:40 Lipitor PO 40 mg QHS KARINA Administration Fentanyl 50 mcg 12/05/18 07:57 Sublimaze IV Q5MIN PRN Pain , Severe (7-10) Hydralazine HCl 10 mg 12/03/18 20:17 12/05/18 11:09 Apresoline IV 10 mg Q4HR PRN Administration Blood Pressure Hydrochlorothiazide 25 mg 12/05/18 10:00 12/06/18 09:22 Hctz PO 25 mg QDAY KARINA Administration Ampicillin Sodium/Sulbactam Sodium 1.5 gm in 50 mls @ 100 mls/hr 12/04/18 00:00 12/05/18 22:40 Unasyn/Ns 1.5 Gm/50 Ml IV 100 mls/hr Q6HR KARINA Administration Protocol Sodium Chloride 1,000 mls @ 100 mls/hr 12/03/18 21:00 12/06/18 05:50 Nacl 0.9% 1000 Ml IV 100 mls/hr DIRECT KARINA Administration Labetalol HCl 10 mg 12/05/18 11:21 12/05/18 10:40 Normodyne IV 10 mg Q10MIN PRN Administration Systollic greater than 170 Miscellaneous Medication 4 mg 12/04/18 10:00 Fesoterodine Fumarate [Toviaz] PO QDAY [facility] Morphine Sulfate 2 mg 12/03/18 20:13 12/06/18 09:23 Morphine IV 2 mg Q4H PRN Administration Pain, Moderate (4-6) Ondansetron HCl 4 mg 12/03/18 20:13 Zofran IV Q8H PRN Nausea And Vomiting Ondansetron HCl 4 mg 12/05/18 07:57 Zofran IV ONCE PRN Nausea And Vomiting Oxycodone/Acetaminophen 1 tab 12/03/18 20:13 12/06/18 01:55 Percocet 5/325 PO 1 tab Q6H PRN Administration Pain, Moderate (4-6) Sodium Chloride 10 ml 12/03/18 22:00 12/06/18 09:22 Sodium Chloride Flush Syringe 10 Ml IV 10 ml BID KARINA Administration Sodium Chloride 10 ml 12/03/18 20:13 Sodium Chloride Flush Syringe 10 Ml IV PRN PRN LINE FLUSH
[2018-12-06] MEDS: UNASYN/NS 1.5 GM/50 ML 1.5 GM/50 ML BAG IV SCH ×4 (11:53→14:13)
--- NOTE | 2018-12-06 12:20 | Progress Note ---
Assessment and Plan Assessment and plan: 68-year-old male with history of hypertension, CVA, panic attacks, mentally challenged who presents to [facility] ED with complaints of penile pain and erosion of penile pump through penis. On assessment penile pump is noted to be eroded approximately 1 inch outside of penis. There is some crusting over genital area with foul odor noted. Has elevated white count at 14.7 with a heart rate of 99 bpm, and is currently afebrile. Urology consulted in the ED Sepsis likely due to erosion of penile pump Erosion of penile pump with necrosis; sp IPP removal surgery --Wound culture grew Gram negative rods. patient is on IV antibiotics., ID consult RASHID; resolved HTN; controlled;on amlodipine, HCTZ and PRN hydralazine Hx CVA; continue supportive care and home medications - Aspirin, lipitor Hx of panic attacks Mentally challenged DVT PPX on Lovenox History Interval history: Review of systems Constitutional: No fevers, no malaise, no joint pains CVS: No chest pain, no orthopnea, no dyspnea on exertion, no pedal edema GI: No abdominal pain, no diarrhea, no vomiting, no constipation Respiratory: no wheezing, no coughing Hospitalist Physical - Physical exam Narrative exam: Not in cardiopulmonary distress. The patient appeared well nourished and normally developed. Vital signs as documented. Head exam is unremarkable. No scleral icterus . Neck is without jugular venous distension, thyromegaly, or carotid bruits. Lungs are clear to auscultation. Cardiac exam reveals regular rate and Rhythm. First and second heart sounds normal. No murmurs, rubs or gallops. Abdominal exam reveals normal bowel sounds, no masses, no organomegaly and no aortic enlargement. Extremities are nonedematous and both femoral and pedal pulses are normal. 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 - Constitutional Vitals: Temp Pulse Resp BP Pulse Ox 97.4 F L 77 18 176/76 96 12/06/18 07:59 12/06/18 09:23 12/06/18 07:59 12/06/18 09:23 12/06/18 08:00 Results - Labs CBC & Chem 7: 12/08/18 00:50 12/05/18 05:28 Labs: Laboratory Last Values WBC 12.4 K/mm3 (4.5-11.0) H 12/05/18 05:28 RBC 4.51 M/mm3 (3.65-5.03) 12/05/18 05:28 Hgb 12.8 gm/dl (11.8-15.2) 12/05/18 05:28 Hct 38.6 % (35.5-45.6) 12/05/18 05:28 MCV 86 fl (84-94) 12/05/18 05:28 MCH 29 pg (28-32) 12/05/18 05:28 MCHC 33 % (32-34) 12/05/18 05:28 RDW 14.7 % (13.2-15.2) 12/05/18 05:28 Plt Count 328 K/mm3 (140-440) 12/05/18 05:28 Lymph % (Auto) 29.9 % (13.4-35.0) 12/05/18 05:28 [place] % (Auto) 9.1 % (0.0-7.3) H 12/05/18 05:28 Eos % (Auto) 2.8 % (0.0-4.3) 12/05/18 05:28 Baso % (Auto) 0.3 % (0.0-1.8) 12/05/18 05:28 Lymph # 3.7 K/mm3 (1.2-5.4) 12/05/18 05:28 [place] # 1.1 K/mm3 (0.0-0.8) H 12/05/18 05:28 Eos # 0.4 K/mm3 (0.0-0.4) 12/05/18 05:28 Baso # 0.0 K/mm3 (0.0-0.1) 12/05/18 05:28 Seg Neutrophils % 57.9 % (40.0-70.0) 12/05/18 05:28 Seg Neutrophils # 7.2 K/mm3 (1.8-7.7) 12/05/18 05:28 Sodium 141 mmol/L (137-145) 12/05/18 05:28 Potassium 3.7 mmol/L (3.6-5.0) 12/05/18 05:28 Chloride 103.9 mmol/L (98-107) 12/05/18 05:28 Carbon Dioxide 24 mmol/L (22-30) 12/05/18 05:28 17 mmol/L 12/05/18 05:28 BUN 18 mg/dL (9-20) 12/05/18 05:28 1.0 mg/dL (0.8-1.5) 12/05/18 05:28 Estimated GFR > 60 ml/min 12/05/18 05:28 18 % 12/05/18 05:28 Glucose 82 mg/dL (75-100) 12/05/18 05:28 Lactic Acid 1.30 mmol/L (0.7-2.0) 12/03/18 17:20 Calcium 8.8 mg/dL (8.4-10.2) 12/05/18 05:28 0.20 mg/dL (0.1-1.2) 12/03/18 16:58 AST 21 units/L (5-40) 12/03/18 16:58 ALT 14 units/L (7-56) 12/03/18 16:58 82 units/L (35-129) 12/03/18 16:58 8.2 g/dL (6.3-8.2) 12/03/18 16:58 3.7 g/dL (3.9-5) L 12/03/18 16:58 0.8 % 12/03/18 16:58 Active Medications - Current Medications Current Medications: Generic Name Dose Route Start Last Admin Trade Name Freq PRN Reason Stop Dose Admin Acetaminophen 650 mg 12/03/18 20:13 Tylenol PO Q4H PRN Pain MILD(1-3)/Fever >100.5/[place] Amlodipine Besylate 10 mg 12/04/18 10:00 12/06/18 09:23 Norvasc PO 10 mg DAILY KARINA Administration Atorvastatin Calcium 40 mg 12/03/18 22:00 12/05/18 22:40 Lipitor PO 40 mg QHS KARINA Administration Fentanyl 50 mcg 12/05/18 07:57 Sublimaze IV Q5MIN PRN Pain , Severe (7-10) Hydralazine HCl 10 mg 12/03/18 20:17 12/05/18 11:09 Apresoline IV 10 mg Q4HR PRN Administration Blood Pressure Hydrochlorothiazide 25 mg 12/05/18 10:00 12/06/18 09:22 Hctz PO 25 mg QDAY KARINA Administration Ampicillin Sodium/Sulbactam Sodium 1.5 gm in 50 mls @ 100 mls/hr 12/04/18 00:00 12/06/18 11:53 Unasyn/Ns 1.5 Gm/50 Ml IV 100 mls/hr Q6HR KARINA Administration Protocol Sodium Chloride 1,000 mls @ 100 mls/hr 12/03/18 21:00 12/06/18 05:50 Nacl 0.9% 1000 Ml IV 100 mls/hr DIRECT KARINA Administration Labetalol HCl 10 mg 12/05/18 11:21 12/05/18 10:40 Normodyne IV 10 mg Q10MIN PRN Administration Systollic greater than 170 Miscellaneous Medication 4 mg 12/04/18 10:00 Fesoterodine Fumarate [Toviaz] PO QDAY KARINA Morphine Sulfate 2 mg 12/03/18 20:13 12/06/18 09:23 Morphine IV 2 mg Q4H PRN Administration Pain, Moderate (4-6) Ondansetron HCl 4 mg 12/03/18 20:13 Zofran IV Q8H PRN Nausea And Vomiting Ondansetron HCl 4 mg 12/05/18 07:57 Zofran IV ONCE PRN Nausea And Vomiting Oxycodone/Acetaminophen 1 tab 12/03/18 20:13 12/06/18 01:55 Percocet 5/325 PO 1 tab Q6H PRN Administration Pain, Moderate (4-6) Sodium Chloride 10 ml 12/03/18 22:00 12/06/18 09:22 Sodium Chloride Flush Syringe 10 Ml IV 10 ml BID KARINA Administration Sodium Chloride 10 ml 12/03/18 20:13 Sodium Chloride Flush Syringe 10 Ml IV PRN PRN LINE FLUSH
--- NOTE | 2018-12-06 13:48 | Consultation ---
History of Present Illness - Reason for Consult Consult date: 12/06/18 Penile infection Requesting physician: SHELLY ROBERTS - History of Present Illness This patient is a 68-year-old male with a past medical history of hypertension, CVA, panic attacks, mentally challenged.,TURP procedure 2016, presents in the ED on 12/03/18 with complaints of penile pain and erosion of penile pump thorough his penis. Upon further evaluation the penile pump was noted to be eroded approximately 1 inch outside of the penis with crusting over the genital area and foul odor. On admission WBC 14.7, Creatinine 1.2,, Lactic Acid 1.3, Temperature 97.5, Heart Rate 99, BP 149/65. Urology was consulted and he underwent removal of Internal Penile Pump on 12/05/18. Surgical wound cultures grew GNR. Surgical culture of penis foreskin are in progress. Blood cultures show no growth to date.. Review of Systems: General: no fever, chills, nightsweats, unintentional weight change, or change in appetite Cutaneous: no rash, pruritus Head: no headaches or injury Eyes: no changes in vision, eye pain, double vision Ears: no ear pain, ear discharge, ringing or hearing loss Nose: no nose bleeding, stuffiness Mouth & throat: no bleeding gums, no horseness, no dental problems, or swollen glands Neck: no pain, node enlargement/lumps, tyroid enlargement or tenderness Respiratory: no cough, wheezing, sputum, hemoptysis, pleuritic chest pain Cardiovascular: no chest pain, leg edema, cyanosis, BABB, orthopnea Musculoskeletal: no decreased joint motion, bone or joint pain, joint swelling, muscle aches Gastrointestinal: no nausea, vomiting, hematemesis, diarrhea, constipation, melena, bright red blood in stools, fecal incontinence, jaundice Genitourinary: + penile dressing C//D/I - Suprapubic catheter. Neurogical: no seizures, no headaches, no weakness, no paresthesias, no loss of speech or vision; no memory loss, no vertigo, no tremors, no numbness Psychiatric: stable mood; no excessive anxiety, sadness or moodiness Past History Past Medical History: hypertension, stroke, other (panic attacks, mentally challenged, elevated PSA) Past Surgical History: Other (penile implant surgery) Social history: lives with family, smoking (former smoker) Family history: no significant family history Medications and Allergies Allergies Allergy/AdvReac Type Severity Reaction Status Date / Time No Known Allergies Allergy Verified 02/28/16 14:38 Home Medications Medication Instructions Recorded Confirmed Last Taken Type No Known Home Medications [No 12/04/18 12/04/18 Unknown History Reported Home Medications] Active Meds: Active Medications Acetaminophen (Tylenol) 650 mg PO Q4H PRN PRN Reason: Pain MILD(1-3)/Fever >100.5/[place] Amlodipine Besylate (Norvasc) 10 mg PO DAILY [facility] Last Admin: 12/06/18 09:23 Dose: 10 mg Documented by: Atorvastatin Calcium (Lipitor) 40 mg PO QHS [facility] Last Admin: 12/05/18 22:40 Dose: 40 mg Documented by: Fentanyl (Sublimaze) 50 mcg IV Q5MIN PRN PRN Reason: Pain , Severe (7-10) Hydralazine HCl (Apresoline) 10 mg IV Q4HR PRN PRN Reason: Blood Pressure Last Admin: 12/05/18 11:09 Dose: 10 mg Documented by: Hydrochlorothiazide (Hctz) 25 mg PO QDAY [facility] Last Admin: 12/06/18 09:22 Dose: 25 mg Documented by: Ampicillin Sodium/Sulbactam Sodium (Unasyn/Ns 1.5 Gm/50 Ml) 1.5 gm in 50 mls @ 100 mls/hr IV Q6HR [facility]; Protocol Last Admin: 12/06/18 11:53 Dose: 100 mls/hr Documented by: Sodium Chloride (Nacl 0.9% 1000 Ml) 1,000 mls @ 100 mls/hr IV DIRECT [facility] Last Admin: 12/06/18 05:50 Dose: 100 mls/hr Documented by: Labetalol HCl (Normodyne) 10 mg IV Q10MIN PRN PRN Reason: Systollic greater than 170 Last Admin: 12/05/18 10:40 Dose: 10 mg Documented by: Miscellaneous Medication (Fesoterodine Fumarate [Toviaz]) 4 mg PO QDAY [facility] Morphine Sulfate (Morphine) 2 mg IV Q4H PRN PRN Reason: Pain, Moderate (4-6) Last Admin: 12/06/18 09:23 Dose: 2 mg Documented by: Ondansetron HCl (Zofran) 4 mg IV Q8H PRN PRN Reason: Nausea And Vomiting Ondansetron HCl (Zofran) 4 mg IV ONCE PRN PRN Reason: Nausea And Vomiting Oxycodone/Acetaminophen (Percocet 5/325) 1 tab PO Q6H PRN PRN Reason: Pain, Moderate (4-6) Last Admin: 12/06/18 01:55 Dose: 1 tab Documented by: Sodium Chloride (Sodium Chloride Flush Syringe 10 Ml) 10 ml IV BID KARINA Last Admin: 12/06/18 09:22 Dose: 10 ml Documented by: Sodium Chloride (Sodium Chloride Flush Syringe 10 Ml) 10 ml IV PRN PRN PRN Reason: LINE FLUSH Physical Examination - Physical Exam Narrative exam: Constitutional: Alert, cooperative. Penile pain 7/10 on numberic pain scale. Head, Ears, Nose: Normocephalic, atraumatic. External ears, nose normal Eyes: Conjunctivae/corneas clear. No icterus. No ptosis. Neck: Supple, no meningeal signs Oral: dentition fair no thrush Cardiovascular: S1, S2 normal. Respiratory: Good air entry, clear to auscultation bilaterally GI: Soft, non-tender; bowel sounds normal. No peritoneal signs Gu: Penile dressing. C/D/I. + Suprapubic catheter. Musculoskeletal: No pedal edema, no cyanosis. Skin: No rash or abscess. Hem/Lymphatic: No palpable cervical or supraclavicular nodes. No lymphangitis Psych: Mood ok. Affect normal Neurological: Awake, alert, oriented. - Constitutional Vitals: Vital Signs Temp Pulse Resp BP Pulse Ox 97.4 F L 77 18 176/76 96 12/06/18 07:59 12/06/18 09:23 12/06/18 07:59 12/06/18 09:23 12/06/18 08:00 Temperature -Last 24 Hours Temperature 97.4 F Temperature 99.1 F Temperature 99.6 F Results - Labs CBC & Chem 7: 12/05/18 05:28 12/05/18 05:28 Assessment and Plan Cultures: 12/03/18 Blood: no growth to date 12/03/18 Deep Wound: GNR 12/05/18 Penis Foreskin surgical : in progress : A/P: 68-year-old male with a past medical history of hypertension, CVA, panic attacks, mentally challenged., TURP procedure 2016, presents in the ED on 12/03/18 with complaints of penile pain and erosion of penile pump thorough his penis. Upon further evaluation the penile pump was noted to be eroded approximately 1 inch outside of the penis with crusting over the genital area and foul odor. Admitted with: 1. Leukocytosis: on admission. Etiology most likely penile pump erosion. Deep wound culture grew GNR. No fevers. Blood Cultures show no growth to date. Currently being treated with Unasyn. 2. Erosion of penile pump with necrosis: Urology following. S/P removal of internal penile pump on 12/05/18. Surgical penis foreskin cultures in progress. Deep wound cultures grew GNR. +Suprapubic catheter. 3. Mentally Challenged: 4. History of CVA: Plan: Discontinue Unasyn -Start Cefepime 1gm IV every 8 hours -Start Vancomycin PK dose -follow up deep wound cultures for ID and DANYELL's -follow up surgical cultures -follow up blood cultures -Monitor WBC [facility] M: [id number] O:[phone]
[2018-12-06] MEDS ORDERED: VANCOMYCIN PHARMACY TO DOSE IV SCH (14:00)
[2018-12-06] MEDS: MAXIPIME/NS 1 GM/100 ML 1 GM/100 ML BAG IV SCH (16:31)
[2018-12-06] MEDS ORDERED: VANCOMYCIN 1,500 MG in NACL 0.9% 500 ML 500 ML IV ONE (17:00)
[2018-12-06] MEDS: APRESOLINE IV PRN (19:59)
[2018-12-07] MEDS: MORPHINE IV PRN (02:12)
[2018-12-07] MEDS: APRESOLINE IV PRN (02:14)
[2018-12-07] MEDS: MAXIPIME/NS 1 GM/100 ML 1 GM/100 ML BAG IV SCH ×4 (02:19→23:03)
[2018-12-07] MEDS: NACL 0.9% 1000 ML 1,000 ML IV SCH ×2 (04:23→15:37)
[2018-12-07] MEDS ORDERED: VANCOMYCIN/NS 1 GM/250 ML 1 GM/250 ML BAG IV SCH (06:00)
[2018-12-07] MEDS: PERCOCET 5/325 PO PRN ×2 (07:22→13:32)
--- NOTE | 2018-12-07 08:36 | Progress Note ---
Assessment and Plan Cultures: 12/03/18 Blood: no growth to date 12/03/18 Deep Wound: GNR 12/05/18 Penis Foreskin surgical : in progress : A/P: 68-year-old male with a past medical history of hypertension, CVA, panic attacks, mentally challenged., TURP procedure 2016, presents in the ED on 12/03/18 with complaints of penile pain and erosion of penile pump thorough his penis. Upon further evaluation the penile pump was noted to be eroded approximately 1 inch outside of the penis with crusting over the genital area and foul odor. Admitted with: 1. Leukocytosis: continuing. WBC 15K today. . Etiology most likely penile pump erosion. Deep wound culture grew GNR. No fevers. Blood Cultures show no growth to date. Currently being treated with Unasyn. 2. Erosion of penile pump with necrosis: Urology following. S/P removal of inte rnal penile pump on 12/05/18. Surgical penis foreskin cultures in progress. Deep wound cultures grew GNR. +Suprapubic catheter. Will order U/A and Urine culture. 3. Mentally Challenged: 4. History of CVA: Plan: -continue Cefepime 1gm IV every 8 hours, D2 - discontinue Vancomycin -follow up deep wound cultures for ID and DANYELL's -follow up surgical cultures -follow up blood cultures -Monitor WBC -U/A and urine culture ordered -CBC ordered for tomorrow [facility] M: [id number] O:[phone] Subjective Date of service: 12/07/18 Interval history: Patient seen and examined. Sitting up in the chair. Reports continued penile pa in and tenderness. No fevers. Objective - Exam Narrative Exam: Constitutional: Alert, cooperative. Penile pain continuing Head, Ears, Nose: Normocephalic, atraumatic. External ears, nose normal Eyes: Conjunctivae/corneas clear. No icterus. No ptosis. Neck: Supple, no meningeal signs Oral: dentition fair no thrush Cardiovascular: S1, S2 normal. Respiratory: Good air entry, clear to auscultation bilaterally GI: Soft, non-tender; bowel sounds normal. No peritoneal signs Gu: Penile dressing. C/D/I. + Suprapubic catheter. Musculoskeletal: No pedal edema, no cyanosis. Skin: No rash or abscess. Hem/Lymphatic: No palpable cervical or supraclavicular nodes. No lymphangitis Psych: Mood ok. Affect normal Neurological: Awake, alert, oriented. - Constitutional Vitals: Vital Signs Temp Pulse Resp BP Pulse Ox 97.6 F 108 H 18 164/92 85 12/07/18 07:11 12/07/18 07:11 12/07/18 07:11 12/07/18 07:11 12/07/18 07:11 Temperature -Last 24 Hours Temperature 97.6 F Temperature 98.3 F Temperature 98.8 F Temperature 98.5 F - Labs CBC & Chem 7: 12/07/18 10:05 12/05/18 05:28
[2018-12-07] MEDS: SODIUM CHLORIDE FLUSH SYRINGE 10 ML IV SCH ×2 (08:59→22:00)
[2018-12-07] MEDS: NORVASC PO SCH (08:59)
[2018-12-07] MEDS: HCTZ PO SCH (08:59)
[2018-12-07 10:29] LABS: Basophils % (Auto) 0.3 % (0.0-1.8); Eosinophils # (Auto) 0.2 K/mm3 (0.0-0.4); Hematocrit 38.3 % (35.5-45.6); Hemoglobin 12.8 gm/dl (11.8-15.2); Lymphocytes # (Auto) 2.5 K/mm3 (1.2-5.4); Lymphocytes % (Auto) 16.1 % (13.4-35.0); Mean Corpuscular HGB Conc 33 % (32-34); Mean Corpuscular Volume 86 fl (84-94); Monocytes # (Auto) 1.1 K/mm3 (0.0-0.8); Monocytes % (Auto) 7.2 % (0.0-7.3); Platelet Count 348 K/mm3 (140-440); Red Blood Count 4.44 M/mm3 (3.65-5.03); Red Cell Distribution Width 15.5 % (13.2-15.2)
--- NOTE | 2018-12-07 12:00 | Progress Note ---
Subjective Date of service: 12/07/18 Interval history: 68-year-old male with history of hypertension, CVA, panic attacks, mentally challenged who presents to [facility] ED with complaints of penile pain and erosion of penile pump through penis. On assessment penile pump is noted to be eroded approximately 1 inch outside of penis. There is some crusting over genital area with foul odor noted. Has elevated white count at 14.7 with a heart rate of 99 bpm, and is currently afebrile. Urology consulted in the ED S/P REMOVAL & SPT (DR. Ewing 12-05-18) wound clean michelle removed (12-06-18) spt - irrigates well A/P UTI IPP S/P REMOVAL home with spt Objective - Constitutional Vitals: Vital Signs - 12hr 12/07/18 12/07/18 12/07/18 01:50 02:14 02:20 Temperature 98.3 F Pulse Rate 99 H Pulse Rate [ From Monitor] Respiratory 20 Rate Blood Pressure 175/90 175/90 Blood Pressure [Left] O2 Sat by Pulse 94 Oximetry 12/07/18 12/07/18 12/07/18 05:15 07:11 08:59 Temperature 97.6 F Pulse Rate 87 108 H 112 H Pulse Rate [ From Monitor] Respiratory 18 Rate Blood Pressure 164/92 136/79 Blood Pressure 148/71 [Left] O2 Sat by Pulse 85 Oximetry 12/07/18 10:00 Temperature Pulse Rate Pulse Rate [ 112 H From Monitor] Respiratory 16 Rate Blood Pressure Blood Pressure [Left] O2 Sat by Pulse 95 Oximetry - Labs CBC & Chem 7: 12/07/18 10:05 12/05/18 05:28 Labs: Abnormal lab results 12/07/18 Range/Units 10:05 WBC 15.7 H (4.5-11.0) K/mm3 RDW 15.5 H (13.2-15.2) % [place] # 1.1 H (0.0-0.8) K/mm3 Seg Neutrophils % 75.4 H (40.0-70.0) % Seg Neutrophils # 11.9 H (1.8-7.7) K/mm3 Medications & Allergies - Medications Allergies/Adverse Reactions: Allergies No Known Allergies Allergy (Verified 02/28/16 14:38) Home Medications: Home Medications Medication Instructions Recorded Confirmed Last Taken Type No Known Home Medications [No 12/04/18 12/04/18 Unknown History Reported Home Medications] Active Medications: Generic Name Dose Route Start Last Admin Trade Name Freq PRN Reason Stop Dose Admin Acetaminophen 650 mg 12/03/18 20:13 Tylenol PO Q4H PRN Pain MILD(1-3)/Fever >100.5/[place] Amlodipine Besylate 10 mg 12/04/18 10:00 12/07/18 08:59 Norvasc PO 10 mg DAILY KARINA Administration Atorvastatin Calcium 40 mg 12/03/18 22:00 12/06/18 21:33 Lipitor PO 40 mg QHS KARINA Administration Fentanyl 50 mcg 12/05/18 07:57 Sublimaze IV Q5MIN PRN Pain , Severe (7-10) Hydralazine HCl 10 mg 12/03/18 20:17 12/07/18 02:14 Apresoline IV 10 mg Q4HR PRN Administration Blood Pressure Hydrochlorothiazide 25 mg 12/05/18 10:00 12/07/18 08:59 Hctz PO 25 mg QDAY KARINA Administration Sodium Chloride 1,000 mls @ 100 mls/hr 12/03/18 21:00 12/07/18 04:23 Nacl 0.9% 1000 Ml IV 100 mls/hr DIRECT KARINA Administration Cefepime HCl 1 gm in 100 mls @ 200 mls/hr 12/06/18 16:00 12/07/18 07:17 Maxipime/Ns 1 Gm/100 Ml IV 200 mls/hr Q8H KARINA Administration Protocol Vancomycin HCl 1 gm in 250 mls @ 166.667 mls/hr 12/07/18 06:00 12/07/18 05:07 Vancomycin/Ns 1 Gm/250 Ml IV 166.667 mls/hr Q12H KARINA Administration Labetalol HCl 10 mg 12/05/18 11:21 12/05/18 10:40 Normodyne IV 10 mg Q10MIN PRN Administration Systollic greater than 170 Miscellaneous Medication 4 mg 12/04/18 10:00 Fesoterodine Fumarate [Toviaz] PO QDAY KARINA Morphine Sulfate 2 mg 12/03/18 20:13 12/07/18 02:12 Morphine IV 2 mg Q4H PRN Administration Pain, Moderate (4-6) Ondansetron HCl 4 mg 12/03/18 20:13 Zofran IV Q8H PRN Nausea And Vomiting Oxycodone/Acetaminophen 1 tab 12/03/18 20:13 12/07/18 07:22 Percocet 5/325 PO 1 tab Q6H PRN Administration Pain, Moderate (4-6) Sodium Chloride 10 ml 12/03/18 22:00 12/07/18 08:59 Sodium Chloride Flush Syringe 10 Ml IV Not Given BID KARINA Sodium Chloride 10 ml 12/03/18 20:13 Sodium Chloride Flush Syringe 10 Ml IV PRN PRN LINE FLUSH
--- NOTE | 2018-12-07 12:31 | Progress Note ---
Assessment and Plan Assessment and plan: 68-year-old male with history of hypertension, CVA, panic attacks, mentally challenged who presents to [facility] ED with complaints of penile pain and erosion of penile pump through penis. On assessment penile pump is noted to be eroded approximately 1 inch outside of penis. There is some crusting over genital area with foul odor noted. Has elevated white count at 14.7 with a heart rate of 99 bpm, and is currently afebrile. Urology consulted in the ED Sepsis likely due to erosion of penile pump Erosion of penile pump with necrosis; sp IPP removal surgery , sp SP cath, to be dc home with it --Wound culture grew Gram negative rods. patient is on IV antibiotics., ID consult appreciated RASHID; resolved HTN; controlled;on amlodipine, HCTZ and PRN hydralazine Hx CVA; continue supportive care and home medications - Aspirin, lipitor Hx of panic attacks Mentally challenged DVT PPX on Lovenox History Interval history: penile pain is improving, still has foul smelling drainage Review of systems Constitutional: No fevers, no malaise, no joint pains CVS: No chest pain, no orthopnea, no dyspnea on exertion, no pedal edema GI: No abdominal pain, no diarrhea, no vomiting, no constipation Respiratory: no wheezing, no coughing Hospitalist Physical - Physical exam Narrative exam: Not in cardiopulmonary distress. The patient appeared well nourished and normally developed. Vital signs as documented. Head exam is unremarkable. No scleral icterus . Neck is without jugular venous distension, thyromegaly, or carotid bruits. Lungs are clear to auscultation. Cardiac exam reveals regular rate and Rhythm. First and second heart sounds normal. No murmurs, rubs or gallops. Abdominal exam reveals normal bowel sounds, no masses, no organomegaly and no aortic enlargement. Extremities are nonedematous and both femoral and pedal pulses are normal. 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 - Constitutional Vitals: Temp Pulse Resp BP Pulse Ox 97.6 F 112 H 16 136/79 95 12/07/18 07:11 12/07/18 10:00 12/07/18 10:00 12/07/18 08:59 12/07/18 10:00 Results - Labs CBC & Chem 7: 12/07/18 10:05 12/05/18 05:28 Labs: Laboratory Last Values WBC 15.7 K/mm3 (4.5-11.0) H 12/07/18 10:05 RBC 4.44 M/mm3 (3.65-5.03) 12/07/18 10:05 Hgb 12.8 gm/dl (11.8-15.2) 12/07/18 10:05 Hct 38.3 % (35.5-45.6) 12/07/18 10:05 MCV 86 fl (84-94) 12/07/18 10:05 MCH 29 pg (28-32) 12/07/18 10:05 MCHC 33 % (32-34) 12/07/18 10:05 RDW 15.5 % (13.2-15.2) H 12/07/18 10:05 Plt Count 348 K/mm3 (140-440) 12/07/18 10:05 Lymph % (Auto) 16.1 % (13.4-35.0) 12/07/18 10:05 [place] % (Auto) 7.2 % (0.0-7.3) 12/07/18 10:05 Eos % (Auto) 1.0 % (0.0-4.3) 12/07/18 10:05 Baso % (Auto) 0.3 % (0.0-1.8) 12/07/18 10:05 Lymph # 2.5 K/mm3 (1.2-5.4) 12/07/18 10:05 [place] # 1.1 K/mm3 (0.0-0.8) H 12/07/18 10:05 Eos # 0.2 K/mm3 (0.0-0.4) 12/07/18 10:05 Baso # 0.0 K/mm3 (0.0-0.1) 12/07/18 10:05 Seg Neutrophils % 75.4 % (40.0-70.0) H 12/07/18 10:05 Seg Neutrophils # 11.9 K/mm3 (1.8-7.7) H 12/07/18 10:05 Sodium 141 mmol/L (137-145) 12/05/18 05:28 Potassium 3.7 mmol/L (3.6-5.0) 12/05/18 05:28 Chloride 103.9 mmol/L (98-107) 12/05/18 05:28 Carbon Dioxide 24 mmol/L (22-30) 12/05/18 05:28 17 mmol/L 12/05/18 05:28 BUN 18 mg/dL (9-20) 12/05/18 05:28 1.0 mg/dL (0.8-1.5) 12/05/18 05:28 Estimated GFR > 60 ml/min 12/05/18 05:28 18 % 12/05/18 05:28 Glucose 82 mg/dL (75-100) 12/05/18 05:28 Lactic Acid 1.30 mmol/L (0.7-2.0) 12/03/18 17:20 Calcium 8.8 mg/dL (8.4-10.2) 12/05/18 05:28 0.20 mg/dL (0.1-1.2) 12/03/18 16:58 AST 21 units/L (5-40) 12/03/18 16:58 ALT 14 units/L (7-56) 12/03/18 16:58 82 units/L (35-129) 12/03/18 16:58 8.2 g/dL (6.3-8.2) 12/03/18 16:58 3.7 g/dL (3.9-5) L 12/03/18 16:58 0.8 % 12/03/18 16:58 Active Medications - Current Medications Current Medications: Generic Name Dose Route Start Last Admin Trade Name Freq PRN Reason Stop Dose Admin Acetaminophen 650 mg 12/03/18 20:13 Tylenol PO Q4H PRN Pain MILD(1-3)/Fever >100.5/[place] Amlodipine Besylate 10 mg 12/04/18 10:00 12/07/18 08:59 Norvasc PO 10 mg DAILY KARINA Administration Atorvastatin Calcium 40 mg 12/03/18 22:00 12/06/18 21:33 Lipitor PO 40 mg QHS KARINA Administration Fentanyl 50 mcg 12/05/18 07:57 Sublimaze IV Q5MIN PRN Pain , Severe (7-10) Hydralazine HCl 10 mg 12/03/18 20:17 12/07/18 02:14 Apresoline IV 10 mg Q4HR PRN Administration Blood Pressure Hydrochlorothiazide 25 mg 12/05/18 10:00 12/07/18 08:59 Hctz PO 25 mg QDAY KARINA Administration Sodium Chloride 1,000 mls @ 100 mls/hr 12/03/18 21:00 12/07/18 04:23 Nacl 0.9% 1000 Ml IV 100 mls/hr DIRECT KARINA Administration Cefepime HCl 1 gm in 100 mls @ 200 mls/hr 12/06/18 16:00 12/07/18 07:17 Maxipime/Ns 1 Gm/100 Ml IV 200 mls/hr Q8H KARINA Administration Protocol Vancomycin HCl 1 gm in 250 mls @ 166.667 mls/hr 12/07/18 06:00 12/07/18 05:07 Vancomycin/Ns 1 Gm/250 Ml IV 166.667 mls/hr Q12H KARINA Administration Labetalol HCl 10 mg 12/05/18 11:21 12/05/18 10:40 Normodyne IV 10 mg Q10MIN PRN Administration Systollic greater than 170 Miscellaneous Medication 4 mg 12/04/18 10:00 Fesoterodine Fumarate [Toviaz] PO QDAY [facility] Morphine Sulfate 2 mg 12/03/18 20:13 12/07/18 02:12 Morphine IV 2 mg Q4H PRN Administration Pain, Moderate (4-6) Ondansetron HCl 4 mg 12/03/18 20:13 Zofran IV Q8H PRN Nausea And Vomiting Oxycodone/Acetaminophen 1 tab 12/03/18 20:13 12/07/18 07:22 Percocet 5/325 PO 1 tab Q6H PRN Administration Pain, Moderate (4-6) Sodium Chloride 10 ml 12/03/18 22:00 12/07/18 08:59 Sodium Chloride Flush Syringe 10 Ml IV Not Given BID KARINA Sodium Chloride 10 ml 12/03/18 20:13 Sodium Chloride Flush Syringe 10 Ml IV PRN PRN LINE FLUSH
[2018-12-07 16:48] LABS: Bilirubin,Urine NEG (Negative); Blood,Urine MOD (Negative); Color,Urine Straw (Yellow); Mucus,Urine FEW /HPF; Protein,Urine <15 mg/dL mg/dL (Negative); Urobilinogen,Urine < 2.0 mg/dL (<2.0)
[2018-12-07] MEDS: LOVENOX SUB-Q SCH (21:59)
[2018-12-08 01:22] LABS: Basophils % (Auto) 0.2 % (0.0-1.8); Eosinophils # (Auto) 0.3 K/mm3 (0.0-0.4); Eosinophils % (Auto) 2.4 % (0.0-4.3); Hematocrit 37.5 % (35.5-45.6); Hemoglobin 12.3 gm/dl (11.8-15.2); Lymphocytes # (Auto) 1.9 K/mm3 (1.2-5.4); Lymphocytes % (Auto) 15.8 % (13.4-35.0); Mean Corpuscular HGB Conc 33 % (32-34); Mean Corpuscular Volume 86 fl (84-94); Monocytes # (Auto) 1.2 K/mm3 (0.0-0.8); Monocytes % (Auto) 9.9 % (0.0-7.3); Platelet Count 289 K/mm3 (140-440); Red Blood Count 4.35 M/mm3 (3.65-5.03); Red Cell Distribution Width 15.1 % (13.2-15.2)
[2018-12-08] MEDS: NACL 0.9% 1000 ML 1,000 ML IV SCH ×3 (05:14→18:23)
[2018-12-08] MEDS: MAXIPIME/NS 1 GM/100 ML 1 GM/100 ML BAG IV SCH ×3 (07:28→23:22)
--- NOTE | 2018-12-08 08:49 | Progress Note ---
Assessment and Plan Cultures: 12/03/18 Blood: no growth 12/03/18 Deep Wound: GNR 12/05/18 Penis Foreskin surgical : GNR X 2 : A/P: 68-year-old male with a past medical history of hypertension, CVA, panic attacks, mentally challenged., TURP procedure 2016, presents in the ED on 12/03/18 with complaints of penile pain and erosion of penile pump thorough his penis. Upon further evaluation the penile pump was noted to be eroded appr oximately 1 inch outside of the penis with crusting over the genital area and foul odor. Admitted with: 1. Leukocytosis: Improved. . Etiology most likely penile pump erosion. Deep wound culture grew GNR. No fevers. Blood Cultures show no growth to date. UA neg. Urine culture no growth. 2. Erosion of penile pump with necrosis: Urology following. S/P removal of internal penile pump on 12/05/18. Surgical penis foreskin cultures GNR X2 . Deep wound cultures GNR. Suprapubic catheter. 3. Mentally Challenged: 4. History of CVA: Plan: -continue Cefepime 1gm IV every 8 hours, D3 -follow up deep wound and surgical cultures for ID and DANYELL's -will need to obtain ID and DANYELL's prior to discharge for outpatient antibiotic coverage. d/w Dr. Agustin Mireles, POSTAL TRANSPORTATION CLERK [facility] M: [id number] O:[phone] Subjective Date of service: 12/08/18 Interval history: Patient seen and examined. Sitting up in the chair. Reports continued penile pain and tenderness. No fevers. Objective - Exam Narrative Exam: Constitutional: Alert, cooperative. Penile pain continuing Head, Ears, Nose: Normocephalic, atraumatic. External ears, nose normal Eyes: Conjunctivae/corneas clear. No icterus. No ptosis. Neck: Supple, no meningeal signs Oral: dentition fair no thrush Cardiovascular: S1, S2 normal. Respiratory: Good air entry, clear to auscultation bilaterally GI: Soft, non-tender; bowel sounds normal. No peritoneal signs Gu: Penile dressing. C/D/I. + Suprapubic catheter. Musculoskeletal: No pedal edema, no cyanosis. Skin: No rash or abscess. Hem/Lymphatic: No palpable cervical or supraclavicular nodes. No lymphangitis Psych: Mood ok. Affect normal Neurological: Awake, alert, oriented. - Constitutional Vitals: Vital Signs Temp Pulse Resp BP Pulse Ox 98.3 F 99 H 18 134/81 93 12/08/18 07:29 12/08/18 07:29 12/08/18 07:29 12/08/18 07:29 12/08/18 07:29 Temperature -Last 24 Hours Temperature 98.3 F Temperature 98.6 F Temperature 99.3 F Temperature 97.8 F - Labs CBC & Chem 7: 12/08/18 00:50 12/05/18 05:28 Labs: Abnormal lab results 12/07/18 12/08/18 Range/Units 10:05 00:50 WBC 15.7 H 11.8 H (4.5-11.0) K/mm3 RDW 15.5 H (13.2-15.2) % [place] % (Auto) 9.9 H (0.0-7.3) % [place] # 1.1 H 1.2 H (0.0-0.8) K/mm3 Seg Neutrophils % 75.4 H 71.7 H (40.0-70.0) % Seg Neutrophils # 11.9 H 8.5 H (1.8-7.7) K/mm3
[2018-12-08] MEDS: HCTZ PO SCH (09:18)
[2018-12-08] MEDS: SODIUM CHLORIDE FLUSH SYRINGE 10 ML IV SCH ×2 (09:18→21:35)
[2018-12-08] MEDS: NORVASC PO SCH (09:19)
[2018-12-08] MEDS: PERCOCET 5/325 PO PRN ×3 (09:21→21:34)
--- NOTE | 2018-12-08 13:52 | Progress Note ---
Assessment and Plan Sepsis - likely due to erosion of penile pump with necrosis; --Wound culture grew Gram negative rods. patient is on IV antibiotics., ID c onsult appreciated, wound cx pending PENILE PROSTHESIS EROSION - s/p IPP removal by surgery , s/p SP cath placed by urology, to be dc home with it RASHID; resolved with iv fluid, jackeline vasomotor nephropathy HTN; controlled;on amlodipine, HCTZ and PRN hydralazine Hx CVA; continue supportive care and home medications - Aspirin, lipitor Hx of panic attacks and Mentally challenged - supportive care s/p SPT - not draining well, reconsulted Dr. Kelly DVT PPX on Lovenox Brief History: 68-year-old male with history of hypertension, CVA, panic attacks, mentally challenged who presents to [facility] ED with complaints of penile pain and erosion of penile pump through penis. On assessment penile pump is noted to be eroded approximately 1 inch outside of penis. There is some crusting over genital area with foul odor noted. Has elevated white count at 14.7 with a heart rate of 99 bpm, and is afebrile. Urology consulted in the ED, s/p SPT placement Hospitalist Physical exam: GENERAL: well-developed and well-nourished WM lying on bed appeared to be in no discomfort. HEENT: Normocephalic. Atraumatic. No conjunctival congestion or icterus. Patient has moist mucous membranes. NECK: Supple. Trachea midline. CHEST/LUNGS: Clear to auscultated bilaterally, breathing nonlabored. No wheezes crackles or rhonchi. HEART/CARDIOVASCULAR: Regular in rate and rhythm. S1 and S2 positive. ABDOMEN: Abdomen is soft, nontender. Patient has normal bowel sounds. urology: SPT on place, dribbling urine from penis SKIN: There is no rash. Warm and dry. NEURO: No focal motor deficit. Follows command. MUSCULOSKELETAL: No joint effusion or tenderness. EXTRIMITY: No edema, no cyanosis or clubbing. PSYCH: Cooperative. Subjective Date of service: 12/08/18 Interval history: Patient seen and examined. Medical records and medication list reviewed. No acute event overnight noted by the RN. Patient denies any chest pain or difficulty breathing. Patient is tolerating diet. Discussed plan of care at bedside with patient. Complaint of dysuria, no drainage from suprapubic catheter Objective - Constitutional Vitals: Vital Signs - 12hr 12/08/18 12/08/18 12/08/18 02:18 07:29 09:19 Temperature 98.6 F 98.3 F Pulse Rate 104 H 99 H 98 H Pulse Rate [ From Monitor] Respiratory 18 18 Rate Blood Pressure 133/79 134/81 135/67 O2 Sat by Pulse 93 93 Oximetry 12/08/18 10:00 Temperature Pulse Rate Pulse Rate [ 98 H From Monitor] Respiratory Rate Blood Pressure O2 Sat by Pulse 93 Oximetry - Labs CBC & Chem 7: 12/08/18 00:50 12/05/18 05:28 Labs: Abnormal lab results 12/08/18 Range/Units 00:50 WBC 11.8 H (4.5-11.0) K/mm3 Newton % (Auto) 9.9 H (0.0-7.3) % Newton # 1.2 H (0.0-0.8) K/mm3 Seg Neutrophils % 71.7 H (40.0-70.0) % Seg Neutrophils # 8.5 H (1.8-7.7) K/mm3
[2018-12-08] MEDS: LOVENOX SUB-Q SCH (21:36)
[2018-12-09] MEDS: MAXIPIME/NS 1 GM/100 ML 1 GM/100 ML BAG IV SCH (07:18)
--- NOTE | 2018-12-09 08:47 | Progress Note ---
Assessment and Plan Cultures: 12/03/18 Blood: no growth 12/03/18 Deep Wound: MDR Proteus, sensitive to Levaquin/Cefepime 12/05/18 Penis Foreskin surgical : Proteus, Providencia, sensitive to Levaquin/Cefepime : A/P: 68-year-old male with a past medical history of hypertension, CVA, panic attacks, mentally challenged., TURP procedure 2016, presents in the ED on 12/03/18 with complaints of penile pain and erosion of penile pump thorough his penis. Upon further evaluation the penile pump was noted to be eroded approximately 1 inch outside of the penis with crusting over the genital area and foul odor. Admitted with: 1. Leukocytosis: Improved. . Etiology most likely penile pump erosion. Deep wound culture grew GNR. No fevers. Blood Cultures show no growth to date. UA neg. Urine culture no growth. 2. Erosion of penile pump with necrosis: Urology following. S/P removal of internal penile pump on 12/05/18. Surgical penis foreskin cultures grew Proteus, Providencia. Deep wound cultures grew MDR Proteus vulgaris, sensitive to Levaquin/Cefepime. + Suprapubic catheter. 3. Mentally Challenged: 4. History of CVA: Plan: -continue Cefepime 1gm IV every 8 hours, D4 Ok to discharge home on Levaquin 750mg PO q day total 10 days ending 12-15-18 Follow up in ID clinic 2-3 weeks (sent to dye stand loader) Valeria Mireles NP [facility] M: [phone] O:[phone] Subjective Date of service: 12/09/18 Interval history: Patient seen and examined. Sitting up in the chair. States that he is feeling better today. Discussion regarding outpatient antibiotics and follow-up at ID clinic. Verbalized understanding. Objective - Exam Narrative Exam: Constitutional: Alert, cooperative. No acute distress Head, Ears, Nose: Normocephalic, atraumatic. External ears, nose normal Eyes: Conjunctivae/corneas clear. No icterus. No ptosis. Neck: Supple, no meningeal signs Oral: dentition fair no thrush Cardiovascular: S1, S2 normal. Respiratory: Good air entry, clear to auscultation bilaterally GI: Soft, non-tender; bowel sounds normal. No peritoneal signs Gu: Penile dressing. C/D/I. + Suprapubic catheter. Musculoskeletal: No pedal edema, no cyanosis. Skin: No rash or abscess. Hem/Lymphatic: No palpable cervical or supraclavicular nodes. No lymphangitis Psych: Mood ok. Affect normal Neurological: Awake, alert, oriented. - Constitutional Vitals: Vital Signs Temp Pulse Resp BP Pulse Ox 98.4 F 79 20 159/77 95 12/09/18 07:37 12/09/18 07:37 12/09/18 07:37 12/09/18 07:37 12/09/18 07:37 Temperature -Last 24 Hours Temperature 98.4 F Temperature 98.0 F Temperature 97.9 F Temperature 98.9 F - Labs CBC & Chem 7: 12/08/18 00:50 12/05/18 05:28
[2018-12-09] MEDS: PERCOCET 5/325 PO PRN (09:01)
[2018-12-09] MEDS: HCTZ PO SCH (09:01)
[2018-12-09] MEDS: NORVASC PO SCH (09:02)
[2018-12-09] MEDS: SODIUM CHLORIDE FLUSH SYRINGE 10 ML IV SCH (09:02)
[2018-12-09] MEDS ORDERED: DULCOLAX PO PRN (10:30)
[2018-12-09] MEDS ORDERED: MIRALAX 3350 PO PRN (10:30)
[2018-12-09] MEDS ORDERED: COLACE PO SCH (11:00)
--- NOTE | 2018-12-09 11:36 | Discharge Summary ---
Providers - Providers Date of Admission: 12/03/18 19:31 Date of discharge: 12/09/18 Attending physician: BLADIMIR RIVERA 12/03/18 18:42 Consult to Physician [CONS] Stat Comment: dr. mandujano patient Consulting Provider: ARI PLAZA Physician Instructions: Reason For Exam: erode penile pump 12/04/18 08:41 Physical Therapy Evaluation and Treat [CONS] Routine Comment: Reason For Exam: Weakness 12/04/18 13:58 Consult to Wound/ET Nurse [CONS] Routine Reason For Exam: wound eval 12/06/18 12:11 Consult to Physician [CONS] Routine Comment: called answ. serv./ Karyn Consulting Provider: MARTIR WOODWARD Physician Instructions: Reason For Exam: penile infection [facility] Condition: Stable Hospital course: 68-year-old male with history of hypertension, CVA, panic attacks, mentally challenged who presents to [facility] ED with complaints of penile pain and e rosion of penile pump through penis. On assessment penile pump which was placed about 2 years ago was noted to be eroded approximately 1 inch outside of penis. There is some crusting over genital area with foul odor noted. Has elevated white count at 14.7 with a heart rate of 99 bpm, and is afebrile. Urology consulted in the ED, s/p IPP removal SPT placement by urologist. Wound culture obtained and grew Proteus and Providencia. Patient was then discharge from home health, he will complete antibiotic regimen of ciprofloxacin for 2 weeks. Discharge diagnosis and management: Sepsis - likely due to erosion of penile pump with necrosis; --Wound culture grew Gram negative rods/Proteus and Providencia. patient was initially on IV antibiotics., ID consulted -Patient was discharge to weeks of ciprofloxacin per urology recommendation and based on wound culture data PENILE PROSTHESIS EROSION - s/p IPP removal by surgery , s/p SP cath placed by urology, to be dc home with it RASHID; resolved with iv fluid, jackeline vasomotor nephropathy HTN; controlled;on amlodipine, HCTZ and PRN hydralazine Hx CVA; continue supportive care and home medications - Aspirin, lipitor Hx of panic attacks and Mentally challenged - supportive care DVT PPX on Lovenox Hospitalist Physical exam: GENERAL: well-developed and well-nourished WM lying on bed appeared to be in no discomfort. HEENT: Normocephalic. Atraumatic. No conjunctival congestion or icterus. Patient has moist mucous membranes. NECK: Supple. Trachea midline. CHEST/LUNGS: Clear to auscultated bilaterally, breathing nonlabored. No wheezes crackles or rhonchi. HEART/CARDIOVASCULAR: Regular in rate and rhythm. S1 and S2 positive. ABDOMEN: Abdomen is soft, nontender. Patient has normal bowel sounds. urology: SPT on place, no discharge from penis SKIN: There is no rash. Warm and dry. NEURO: No focal motor deficit. Follows command. MUSCULOSKELETAL: No joint effusion or tenderness. EXTRIMITY: No edema, no cyanosis or clubbing. PSYCH: Cooperative. Disposition: [id number]/TX-06 HOME UNDER HOME [facility] Time spent for discharge: 34 minutes Core Measure Documentation - Palliative Care Palliative Care/ Comfort Measures: Not Applicable - Core Measures Any of the following diagnoses?: none Exam - Constitutional Vitals: Temp Pulse Resp BP Pulse Ox 98.4 F 91 H 20 131/72 95 12/09/18 07:37 12/09/18 10:00 12/09/18 10:00 12/09/18 09:02 12/09/18 10:00 Plan Activity: advance as tolerated, fall precautions Weight Bearing Status: Non-Weight Bearing Diet: low fat, low salt Wound: per your surgeon's advice, drain care as instructed Follow up with: [facility] MD AGUILAR [Primary Care Provider] - 3-5 Days AVELINA TEIXEIRA MD [Staff Physician] - 7 Days Prescriptions: AtorvaSTATin [Lipitor] 40 mg PO QHS #30 tablet Ciprofloxacin HCl [Ciprofloxacin TAB] 500 mg PO Q12HR #14 tab Fesoterodine Fumarate [Toviaz] 4 mg PO QDAY #30 hydroCHLOROthiazide [HCTZ] 25 mg PO QDAY #30 tablet Polyethylene Glycol 3350 [Miralax 3350] 17 gm PO QDAY PRN #10 powd.pack PRN Reason: Constipation amLODIPine [Norvasc] 10 mg PO DAILY #30 tablet oxyCODONE /ACETAMINOPHEN [Percocet 5/325 mg] 1 tab PO Q6H PRN #10 tablet PRN Reason: Pain, Moderate (4-6)
[2018-12-09] MEDS ORDERED: PERCOCET 5/325 PO PRN (13:31)
--- NOTE | 2018-12-09 13:37 | Progress Note ---
Subjective Date of service: 12/09/18 Interval history: 68-year-old male with history of hypertension, CVA, panic attacks, mentally challenged who presents to [facility] ED with complaints of penile pain and erosion of penile pump through penis. On assessment penile pump is noted to be eroded approximately 1 inch outside of penis. There is some crusting over genital area with foul odor noted. Has elevated white count at 14.7 with a heart rate of 99 bpm, and is currently afebrile. Urology consulted in the ED S/P REMOVAL & SPT (DR. Ewing 12-05-18) wound clean michelle removed (12-06-18) spt - irrigates well A/P UTI IPP S/P REMOVAL home with spt percocet 10mg / cipro home or assisted nurse Objective - Constitutional Vitals: Vital Signs - 12hr 12/09/18 12/09/18 12/09/18 02:47 07:37 09:02 Temperature 98.0 F 98.4 F Pulse Rate 71 79 91 H Pulse Rate [ From Monitor] Respiratory 18 20 Rate Blood Pressure 147/70 159/77 131/72 O2 Sat by Pulse 92 95 Oximetry 12/09/18 10:00 Temperature Pulse Rate Pulse Rate [ 91 H From Monitor] Respiratory 20 Rate Blood Pressure O2 Sat by Pulse 95 Oximetry - Labs CBC & Chem 7: 12/08/18 00:50 12/05/18 05:28 Medications & Allergies - Medications Allergies/Adverse Reactions: Allergies No Known Allergies Allergy (Verified 02/28/16 14:38) Home Medications: Home Medications Medication Instructions Recorded Confirmed Last Taken Type Fesoterodine Fumarate [Toviaz] 4 mg PO QDAY #30 12/09/18 Unknown Rx Polyethylene Glycol 3350 [Miralax 17 gm PO QDAY PRN #10 powd.pack 12/09/18 Unkn own Rx 3350] amLODIPine [Norvasc] 10 mg PO DAILY #30 tablet 12/09/18 Unknown Rx hydroCHLOROthiazide [HCTZ] 25 mg PO QDAY #30 tablet 12/09/18 Unknown Rx levoFLOXacin [Levaquin] 750 mg PO QDAY #7 tablet 12/09/18 Unknown Rx oxyCODONE /ACETAMINOPHEN [Percocet 1 tab PO Q6H PRN #10 tablet 12/09/18 Unknown Rx 5/325 mg] Active Medications: Generic Name Dose Route Start Last Admin Trade Name Freq PRN Reason Stop Dose Admin Acetaminophen 650 mg 12/03/18 20:13 Tylenol PO Q4H PRN Pain MILD(1-3)/Fever >100.5/HOLLAND Amlodipine Besylate 10 mg 12/04/18 10:00 12/09/18 09:02 Norvasc PO 10 mg DAILY KARINA Administration Atorvastatin Calcium 40 mg 12/03/18 22:00 12/08/18 21:34 Lipitor PO 40 mg QHS KARINA Administration Bisacodyl 10 mg 12/09/18 10:30 Dulcolax PO QDAY PRN Constipation Docusate Sodium 100 mg 12/09/18 11:00 12/09/18 11:17 Colace PO 100 mg BID KARINA Administration Enoxaparin Sodium 40 mg 12/07/18 22:00 12/08/18 21:36 Lovenox SUB-Q 40 mg QDAY@2200 KARINA Administration Fentanyl 50 mcg 12/05/18 07:57 Sublimaze IV Q5MIN PRN Pain , Severe (7-10) Hydralazine HCl 10 mg 12/03/18 20:17 12/07/18 02:14 Apresoline IV 10 mg Q4HR PRN Administration Blood Pressure Hydrochlorothiazide 25 mg 12/05/18 10:00 12/09/18 09:01 Hctz PO 25 mg QDAY KARINA Administration Sodium Chloride 1,000 mls @ 100 mls/hr 12/03/18 21:00 12/08/18 18:23 Nacl 0.9% 1000 Ml IV 100 mls/hr DIRECT KARINA Administration Cefepime HCl 1 gm in 100 mls @ 200 mls/hr 12/06/18 16:00 12/09/18 07:18 Maxipime/Ns 1 Gm/100 Ml IV 200 mls/hr Q8H KARINA Administration Protocol Labetalol HCl 10 mg 12/05/18 11:21 12/05/18 10:40 Normodyne IV 10 mg Q10MIN PRN Administration Systollic greater than 170 Miscellaneous Medication 4 mg 12/04/18 10:00 Fesoterodine Fumarate [Toviaz] PO QDAY [facility] Morphine Sulfate 2 mg 12/03/18 20:13 12/07/18 02:12 Morphine IV 2 mg Q4H PRN Administration Pain, Moderate (4-6) Ondansetron HCl 4 mg 12/03/18 20:13 Zofran IV Q8H PRN Nausea And Vomiting Oxycodone/Acetaminophen 1 tab 12/09/18 13:31 Percocet 5/325 PO Q4H PRN Pain, Moderate (4-6) Polyethylene Glycol 17 gm 12/09/18 10:30 12/09/18 11:17 Miralax 3350 PO 17 gm QDAY PRN Administration Constipation Sodium Chloride 10 ml 12/03/18 22:00 12/09/18 09:02 Sodium Chloride Flush Syringe 10 Ml IV 10 ml BID KARINA Administration Sodium Chloride 10 ml 12/03/18 20:13 Sodium Chloride Flush Syringe 10 Ml IV PRN PRN LINE FLUSH
[2018-12-09 14:36] VITALS: BP 138/65
== END 2018-12-09 17:05 | disposition home or self-care (01) | DRG 673 ==
LOC: ED 16:46 → 2B-ACE 19:31
PROVIDERS: ADMIT Internal Medicine; ATTEND Internal Medicine
PROC: 0VPS0JZ Removal of Synthetic Substitute from Penis, Open Approach (ICD-10-PCS; principal; 2018-12-05)
PROC: 0TJB8ZZ Inspection of Bladder, Via Natural or Artificial Opening Endoscopic (ICD-10-PCS; 2018-12-05)
PROC: 0T9B30Z Drainage of Bladder with Drainage Device, Percutaneous Approach (ICD-10-PCS; 2018-12-05)
DX: T83.490A Other mechanical complication of implanted penile prosthesis, initial encounter (principal); A41.9 Sepsis, unspecified organism; N17.0 Acute kidney failure with tubular necrosis; N39.0 Urinary tract infection, site not specified; F41.0 Panic disorder [episodic paroxysmal anxiety]; Y83.8 Other surgical procedures as the cause of abnormal reaction of the patient, or of later complication, without mention of misadventure at the time of the procedure; I10 Essential (primary) hypertension; Z86.73 Personal history of transient ischemic attack (TIA), and cerebral infarction without residual deficits; Y92.098 Other place in other non-institutional residence as the place of occurrence of the external cause
CPT/HCPCS: 36415; 80048; 80053; 81001; 82140; 85025; 87040; 87075; 87076; 87086; 87116; 87186; 88300; 88302; 88304; 88305; G0378; A9270-GY; J0295; J0360; J0692; J1170; J1650; J1940; J2270; J2405; J2543; J2704; J3010; J3370; J7030; J7040